=== PATIENT | female | born 2000 | race Caucasian/White ===

== ENCOUNTER 2024-05-15 17:27 | Observation (INO) ==
[2024-05-15 18:09] VITALS: TEMP 98.1
[2024-05-15 18:44] LABS: Hematocrit (blood only) 33.2 % (37.0-47.0); Hemoglobin 10.7 g/dl (12.0-16.0); Mean Corpuscular Hemoglobin 26.3 pg (25.0-34.0); Mean Corpuscular Hgb Conc 32.2 g/dL (32.0-36.0); Mean Corpuscular Volume 81.6 fL (80.0-100.0); Mean Platelet Volume 10.2 fL (9.4-12.4); Platelet Count 227 K/uL (130-400); RDW Coefficient of Variation 14.6 % (11.5-14.5); RDW Standard Deviation 42.1 fL (36.4-46.3); Red Blood Count 4.07 M/uL (4.20-5.40); White Blood Count 9.57 K/ul (4.8-10.8)
[2024-05-15 18:58] LABS: Albumin Globulin Ratio 0.9 (0.9-2); Albumin Level 3.1 gm/dl (3.4-5.0); BUN Creatinine Ratio 11.7 (10-20); Bilirubin,Total 0.4 mg/dl (0.2-1.0); Calcium 8.4 mg/dl (8.6-10.3); Creatinine Clr Calc Pharmacy 143.8 ml/min; Globulin 3.6 gm/dl (2.5-4.0); Potassium 3.8 mmol/L (3.5-5.1); Total Protein 6.7 gm/dl (6.0-8.3)
--- NOTE | 2024-05-15 19:00 | History & Physical Report ---
Date of Service May 15, 2024 Assessment & Plan (1) Gestational hypertension affecting second : History of Present Illness Chief Complaint: elevated blood pressure in office Primary Care Provider: Dilcia Arndt MD 23 F [id number] at 38 weeks seen in L&D for gestational hypertension at 38 weeks. Denies any visual changes, headache, swelling in hands, feet or face. Allergies Allergy/AdvReac Type Severity Reaction Status Date / Time No Known Drug Allergies Allergy Unknown Verified 10/23/22 08:23 Home Medications Medication Instructions Recorded Confirmed Type duloxetine 40 mg capsule,delayed 40 mg PO HS 05/15/24 05/15/24 History release ferrous sulfate 325 mg (65 mg 325 mg PO DAILY 05/15/24 05/15/24 History iron) tablet vits no.124-ferrous fum 1 tab PO DAILY 05/15/24 05/15/24 History 27 mg iron-folic acid 800 mcg tablet ( Vitamin) Patient History Medical History Normal course Gestational [-induced] hypertension without significant proteinuria, complicating childbirth No known health problems Surgical History No history of previous surgery Social History Smoking Status: Never smoker Hx Alcohol Use: No Hx Substance Use: No Preferred Language: German Communication Ability: Effective Real Estate Legal Assistant Required: No Beliefs That Will Affect Care: None marital status: Current Living Situation: Spouse Current Living Situation Comment: , 1 kid, 2 dogs Other Information That Helps Us Care for You: No Feels Safe at Home: Yes Safety Concerns: Feels Safe At This Time Assistive Devices: None OB History x1 LOCOMOTIVE OPERATOR History neg Review of Systems All systems reviewed & are unremarkable except as noted in HPI & below Physical Exam Constitutional: WD/WN, vitals as above Respiratory: normal respiratory effort, lungs clear to auscultation Cardiovascular: Rate/Rhythm: regular rate and regular rhythm Gastrointestinal (Abdomen): Inspection/Auscultation: abdomen normal to inspection abdomen soft. No epigastric or RUQ pain. Musculoskeletal: Extremities: extremities normal to inspection Neurologic: patellar DTR's 2+ bilat, sensation intact Psychiatric: A+Ox3, euthymic affect Genitourinary: OB Exam Monitor Tracing: + external FHT monitor used, + external uterine monitor used, + category I and + normal FHT variability Results & Data Vital Signs (Past 12 Hours) Vital Signs Temp Pulse BP 05/15/24 18:53 117 H 131/86 05/15/24 18:39 113 H 130/77 05/15/24 18:24 120 H 141/85 H 05/15/24 18:10 117 H 119/77 05/15/24 17:50 36.7 C 05/15/24 17:40 97 H 141/90 H Laboratory Results Laboratory Results - last 72 hr 05/15/24 18:17 WBC 9.57 RBC 4.07 L Hgb 10.7 L Hct 33.2 L MCV 81.6 MCH 26.3 MCHC 32.2 RDW Std Deviation 42.1 RDW Coeff of Randall 14.6 H Plt Count 227 MPV 10.2 Sodium 137 Potassium 3.8 Chloride 107 Carbon Dioxide 21 Anion Gap 9 BUN 7 Creatinine 0.60 Est Cr Clr Drug Dosing 143.8 eGFR 127.67 BUN/Creatinine Ratio 11.7 Glucose 87 Calcium 8.4 L Total Bilirubin 0.4 AST 20 ALT 12 Alkaline Phosphatase 201 H Total Protein 6.7 Albumin 3.1 L Globulin 3.6 Albumin/Globulin Ratio 0.9 Monitoring External Monitor Cat 1
[2024-05-15 19:01] LABS: Total Protein Urine Random 24.8 mg/dl (0-11.9)
[2024-05-15 19:07] LABS: Creatinine Urine Random 121.5 mg/dl; Protein Creatinine Ratio Urine 0.2 (0-0.2)
[2024-05-15 19:09] VITALS: BP 130/79; PULSE 113
[2024-05-15 19:16] VITALS: RESP 18
--- OUTSIDE RECORDS SUMMARY | 2024-05-16 05:22 | External Medical Summary ---
Author Name Unknown Address Unknown Organization K01:[facility] [place] - [address] [place] [address] Laboratory Report Ordering Provider Test Date Status NONA DAVE 05/10/2024 16:34:53 Final Normal: � � � <150 mg/ g creatinine
High: � � � � � 150-500 mg/g creatinine
Very High: � >500 mg/g creatinine
Nephrotic: � >3000 mg/g creatinine Observation Date Value Abnormality Reference (Units ) Status Protein/Creatinine [Ratio] in Urine 05/10/2024 16:34:53 197 Above high normal <150 (mg/g ) Final Protein, Urine 05/10/2024 16:34:53 23 (mg/dL) Final Creatinine, Urine 05/10/2024 16:34:53 117 (mg/dL) Final Performing Location [facility] [place] - [address] [place] [address]
--- OUTSIDE RECORDS SUMMARY | 2024-05-16 05:22 | External Medical Summary | Summary of Care ---
Author Name Unknown Organization [facility] Address [address] [place] [address] Phone [phone] Care Team Providers Care Sizing Machine Tender Name Role Phone Dilcia Arndt MD Primary Care Provider [phone] Reason for Visit * Reason Comments Return Visit Encounter Details Date Type Department Care Team ([facility] Contact Info) Description 04/27/2024 3:00 PM EDT Office Visit Gynecology/Obstetics [place] [address] [place] [phone] Shannan Strong PA-C [address] [place] [address] Encounter for supervision of other normal , third trimester*; History of gestational hypertension; Antepartum anemia complicating Allergies No known active allergiesdocumented as of this encounter (statuses as of 05/01/2024) Medications DULoxetine HCl 20 MG Oral Capsule Delayed Release Particles Take 2 Capsules by mouth in the morning. Active 28-0.8 MG Oral Tablet Take by mouth. Active documented as of this encounter (statuses as of 05/01/2024) Active Problems Problem Noted Date Diagnosed Date Antepartum anemia complicating 025 History of gestational hypertension 11/24/2023 Encounter for supervision of other normal , third trimester 11/24/2023 Overview (05/01/2024): Estimated Date of Delivery: 05/20/24 Continue vitamin. O positive. Rubella immune. S/p CBC - anemia taking iron. Passed 1 hour glucose test. Tdap vaccine completed. GBS culture completed. S/p ultrasound on 03/27/2024 - EFW + NOREEN normal. Cephalic. Elevated ALT measurement 11/01/2023 Iron deficiency anemia 08/25/2022 Femoral anteversion 06/14/2002 Flat foot(734) 06/14/2002 Estimated Date of Delivery Comme nts Yes 05/20/2024 Based on last me nstrual period of 08/14/2023 (Exact Date) documented as of this encounter (statuses as of 05/01/2024) Resolved Problems Problem Noted Date Diagnosed Date Resolved Date Gestational hypertension wit hout significant proteinuria 10/22/2022 12/04/2022 Antepartum anemia complicating 08/19/2022 12/04/2022 Overview (08/19/2022): Hemoglobin 10.0 on 08/17/22; blood management referral placed High-risk 03/25/2022 12/05/19 Adjustment disorder with mix ed anxiety and depressed mood 03/25/2022 12/04/2022 Overview (03/25/2022): Taking cymbalta at NOB, planning to continue on this documented as of this encounter (statuses as of 05/01/2024) Immunizations Name Administration Dates Next Due TDAP (age 10 and older)(Boostrix) 08/17/2022 TDAP, Age 7 and older, IM (Adacel) 02/25/2024 documented as of this encounter Social History Tobacco Use Types Packs/Day Years Used Date Smoking Tobacco: Never Smokeless Tobacco: Never Alcohol Use Standard Drinks/Week Comments Not Currently 0 (1 standard drink = 0.6 oz pur e alcohol) Hunger Vital Sign Answer Date Recorded Within the past 12 months, y ou worried that your food would run out before you got the money to buy more. Never true 12/21/19 24 Within the past 12 months, t he food you bought just didn't last and you didn't have money to get more. Never true 12/21/2023 Davidson Depression Scale Answer Date Recorded Davidson Depression Scale Total 6 04/05/2024 The thought of harming myself has occurred to me . Never 04/05/2024 Childcare Answer Date Recorded Do you feel overwhelmed with taking care of a child, family member or friend? No 12/21/2023 Does your family need help f inding childcare? (Household - for ages 0-17 years) Not on file 12/21/2023 Clothing Answer Date Recorded Have you been unable to get clothing when it was really needed? No 12/21/2023 Is your family able to get c lothes or diapers when needed? (Household - for ages 0-17 years) Not on file 12/21/2023 Personal Safety Answer Date Recorded Do you feel unsafe or have concerns for your saf ety? No 12/21/2023 Do you have concerns for you r family's safety? (Household - for ages 0-17 years) Not on file 12/21/2023 Utilities Answer Date Recorded Do you have trouble paying y our heating, water, or electric bill? No 12/21/2023 Is your family able to pay t he heat, water, or electric bill? (Household - for ages 0-17 years) Not on file 12/21/2023 Does your family have access to good internet? (Household - for ages 0-17 years) Not on file 12/21/2023 Employment Status Answer Date Recorded Are you unemployed or without regular income? No 12/21/2023 Does the household have a re gular source of income? (Household - for ages 0-17 years) Not on file 12/21/2023 Social Connections Answer Date Recorded How often do you feel lonely or isolated from th ose around you? Rarely 12/21/2023 Financial Resource Strain Answer Date R ecorded Do you have any trouble payi ng for your medications, or do you think you might in the future? No 12/21/2023 Does your family have troubl e paying for medicine? (Household - for ages 0-17 years) Not on file 12/21/2023 Transportation Needs Answer Date Record ed Do you have trouble getting a ride to medical visits or work? (Adult - for ages 18 years and over) Not on file 12/21/2023 Does your family have a hard time getting a ride to doctors visits? (Household - for ages 0-17 years) Not on file 12/21/2023 Has lack of transportation k ept you from medical appointments, meetings, work, or from getting things needed for daily living? Check all that apply. No 12/21/2023 Do you (or your family) have trouble finding or paying for a ride (transportation)? (Household - for ages 0-17 years) Not on file 12/21/2023 Housing Stability Answer Date Recorded Do you currently live in a s helter or have no steady place to sleep at night? No 12/21/2023 Do you think you are at risk of becoming homeless? (Adult - for ages 18 years and over) Not on file 12/21/2023 Does your family worry about paying for your home or becoming homeless? (Household - for ages 0-17 years) Not on file 1 02/19/2023 Are you homeless or worried that you might be in the future? No 12/21/2023 Are you (or your family) omkar eless or worried that you might be in the future? (Household - for ages 0-17 years) Not on file Food Insecurity Answer Date Recorded Do you need food for this week? No 12/21/2023 Are you able to get enough f ood for your family? (Household - for ages 0-17 years) Not on file 12/21/2023 Does your family need food t his week? (Household - for ages 0-17 years) Not on file 12/21/2023 Do you always have enough fo od for your family? (Household - for ages 0-17 years) Not on file 12/21/2023 Food Insecurity Answer Date Recorded Within the past 12 months, y ou worried that your food would run out before you got the money to buy more. Never true 12/21/19 24 Within the past 12 months, t he food you bought just didn't last and you didn't have money to get more. Never true 12/21/2023 Do you need food for this week? 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 BP 116/68 | Wt 77.9 kg (171 lb 11.2 oz) | LMP 08/14/2023 (Exact Date) | BMI 31.40 kg/m² | BSA 1.85m² Doing well. Denies vaginal bleeding, leaking of fluid, vaginal pressure, abdominal pain, or abnormal vaginal discharge. Denies headaches, blurry vision, or right upper quadrant pain. Patient states she feels good movement. Patient reports that a few terrence dalton contractions. Patient reports mental health is good. Physical Exam General: alert and oriented, no acute distress Pulmonary: normal respiratory effort, no accessory muscle use. Abdomen: gravid, soft, non-tender heart rate: 140's bpm Fundal height: 37 cm Pelvic Exam: external genitalia and vagina anatomy within normal limit, GBS culture obtained today. Life Insurance Agent Documentation Patient offered radio electrician and declined. [place] OB Problems (from 10/25/23 to present) Problem Noted Diagnosed Resolved History of gestational hypertension 11/24/2023 by Radha Padgett CRNP No Encounter for supervision of other normal , third trimester 11/24/2023 by Radha Padgett CRNP No Estimated Date of Delivery: 4/12/25 Continue vitamin. O positive. Rubella immune. S/p CBC - anemia taking iron. Passed 1 hour glucose test. Tdap vaccine completed. GBS culture completed. S/p ultrasound on 03/27/2024 - EFW + NOREEN normal. Cephalic. Plan: -GBS culture obtained today. -Repeat CBC ordered to follow up on anemia. Patient reports taking iron. -Patient reports that mental health is good. Counseled patient to call triage/go to labor and delivery if she has any vaginal bleeding, leaking of fluid, vaginal pressure, 6 or more painful contractions in an hour, abdominal pain, decreased movements, headaches, blurry vision, or right upper quadrant pain. Patient verbalized understanding. RTO in 1 week for return appointment or sooner if any concerns. Shannan Pereira PA-C documented in this encounter Nursing Notes * Sarah Brink CMA - 04/27/2024 2:58 PM EDT Routine OB check. Denies questions or complaints. documented in this encounter Plan of Treatment Upcoming Encounters Date Type Department Care Team (Late st Contact Info) Description 05/03/2024 8:30 AM EDT Office Visit Gynecology/Obstetrics [facility] [address] [place] [phone] Domenica Neely CRNP [address] [place] [address] 05/11/2024 3:45 PM EDT [facility] [address] [address] Mar yJo Carlson PA-C [address] [place] [address] Health Maintenance Due Date Last Done Comments Depression Screening 2010 Lipid Panel 2018 COVID-19 Vaccine ( season) 2023 Influenza Vaccine (FLU shot) (#1) 2023 02/28/2016, 11/16/2013 Pap Smear 03/25/2025 03/25/2022 DTap/Tdap Vaccines (9 - Td or Tdap) 02/24/2034 02/25/2024, 08/17/2022, 09/19/2009, Additional history exists Hepatitis B Vaccine Completed 07/17/1999, 1998, 1998 HPV (Gardasil) Vaccine Completed , 12/09/2012, 09/23/2012 MENINGOCOCCAL (MENACTRA/MENVEO) Completed 11/24/2014, 09/19/2009 Meningitis B Vaccine (Bexsero/Trumemba) Completed 08/14/2020, 02/20/2016 Gonorrhea / Chlamydia Screen Discontinued 10/29/2023, 03/25/2022 Pneumococcal Vaccine: Pediatrics (0 to 5 Years) and At-Risk Patients (6 to 18 Years and 19+ Years) Aged Out No longer eligib le based on patient's age to complete this topic documented as of this encounter Medical Devices Not on filedocumented as of this encounter Procedures Procedure Name Priority Date/Time Associated Diagnosis Comments GROUP B STREP CULTURE/PCR Routine 04/27/2024 3:17 PM EDT Encounter for supervision of other normal , third trimester documented in this encounter Results * GROUP B STREP CULTURE/PCR (04/27/2024 3:17 PM EDT) Group B Strep PCR Result Negative Negative 04/28/2024 9:46 PM EDT [facility] Comment:No Group B Streptoco ccus detected by culture-enhanced PCR (amplified probe). GBS GBSCt 0.0 04/28/2024 9:46 PM EDT [facility] GBS SPCCt 31.0 04/28/2024 9:46 PM EDT LABORATORY [facility] Swab Rectum and vagina, CS / Unknown 04/27/2024 3:17 PM EDT 04/27/2024 3:17 PM EDT us Shannan Mayers PA-C LAB MICRO - GENER AL ORDERABLES Final Result [facility] [address] [place] [address] documented in this encounter Visit Diagnoses Diagnosis Encounter for supervision of other normal , third trimester- Primary History of gestational hypertension Antepartum anemia complicating Anemia, antepartum documented in this encounter Care Teams Sizing Machine Tender Relationship Specialty Start Date End Date Dilcia Arndt MD PCP - General 04/26/08 documented as of this encounter"
--- OUTSIDE RECORDS SUMMARY | 2024-05-16 05:22 | External Medical Summary | Summary of Care ---
Author Name Unknown Organization [facility] Address [address] [place] [address] Phone [phone] Care Team Providers Care Rag Willow Operator Name Role Phone Dilcia Arndt MD Primary Care Provider [phone] Reason for Visit * Reason Comments Outpatient Testing Encounter Details Date Type Department Care Team ([facility] st Contact Info) Description 05/10/2024 4:40 PM EDT Laboratory Laboratory Patient Service [address] [phone] [address] [address] Allergies No known active allergiesdocumented as of this encounter (statuses as of 05/11/2024) Medications DULoxetine HCl 20 MG Oral Capsule Delayed Release Particles Take 2 Capsules by mouth in the morning. Active 28-0.8 MG Oral Tablet Take by mouth. Active documented as of this encounter (statuses as of 05/11/2024) Active Problems Problem Noted Date Diagnosed Date Antepartum anemia complicating 025 History of gestational hypertension 11/24/2023 Encounter for supervision of other normal , third trimester 11/24/2023 Overview (05/10/2024): Estimated Date of Delivery: 05/20/24 Continue vitamin. O positive. Rubella immune. S/p CBC - anemia taking iron. Passed 1 hour glucose test. Tdap vaccine completed. GBS culture negative. S/p ultrasound on 03/27/2024 - EFW + NOREEN normal. Cephalic. Elevated ALT measurement 11/01/2023 Iron deficiency anemia 08/25/2022 Femoral anteversion 06/14/2002 Flat foot(734) 06/14/2002 Overview (05/10/2024): ICD-10 Update of Inactive Term Estimated Date of Delivery Comme nts Yes 05/20/2024 Based on last me nstrual period of 08/14/2023 (Exact Date) documented as of this encounter (statuses as of 05/11/2024) Resolved Problems Problem Noted Date Diagnosed Date [...] as of this encounter (statuses as of 05/11/2024) Immunizations Name Administration Dates Next Due TDAP [...] money to get more. 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 Not on file Not on file documented as of this encounter Plan of Treatment Upcoming Encounters Date Type Department Care Team (Late st Contact Info) Description 05/15/2024 3:45 PM EDT Nurse Only Gynecology[facility]stetics [place] [address] [facility] [phone] [place], Nurse Bottom Buffer [employer] [address] [place] [address] 05/17/2024 3:45 PM EDT Office Visit Gynecology/Obstetics [place] [address] [place], [place] [address] [phone] Shannan Strong PA-C [address] [place] [address] [facility] Robert, STELLA [address] [place], [place] [phone] Health Maintenance Due Date Last Done Comments Depression Screening 2010 Lipid Panel 2018 COVID-19 Vaccine ( season) 2023 Influenza Vaccine (FLU shot) (Season Ended) 2024 02/28/2016, 11/16/2013 Pap Smear 03/25/2025 03/25/2022 DTap/Tdap Vaccines (9 - Td or Tdap) 02/24/2034 02/25/2024, 08/17/2022, 09/19/2009, Additional history exists Hepatitis B Vaccine Completed 07/17/1999, 1998, 1998 HPV (Gardasil) Vaccine Completed 4, 12/09/2012, 09/23/2012 MENINGOCOCCAL (MENACTRA/MENVEO) Completed 11/24/2014, 09/19/2009 [...] Not on filedocumented as of this encounter Care Teams Rag Willow Operator Relationship Specialty Start Date End Date Dilcia Arndt MD PCP - General 04/26/08 documented as of this encounter
--- OUTSIDE RECORDS SUMMARY | 2024-05-16 05:22 | External Medical Summary | Summary of Care ---
Author Name Unknown Organization [facility] Address [address] [place] [address] Phone [phone] Care Team Providers Care Superintendent Quarry Name Role Phone Dilcia Arndt MD Primary Care Provider [phone] Reason for Visit * Reason Comments Return Visit Encounter Details Date Type Department Care Team (Late st Contact Info) Description 05/03/2024 8:30 AM EDT Office Visit Gynecology/Obstetric s [facility] [address] [place] [address] Domenica Neely CRNP [address] [place] [address] History of gestational hypertension*; Encounter for supervision of other normal , third trimester; Antepartum anemia complicating Allergies No known active allergiesdocumented as of this encounter (statuses as of 05/03/2024) Medications DULoxetine HCl 20 MG Oral Capsule Delayed Release Particles Take 2 Capsules by mouth in the morning. Active 28-0.8 MG Oral Tablet Take by mouth. Active documented as of this encounter (statuses as of 05/03/2024) Active Problems Problem Noted Date Diagnosed Date [...] as of this encounter (statuses as of 05/03/2024) Resolved Problems Problem Noted Date Diagnosed Date [...] as of this encounter (statuses as of 05/03/2024) Immunizations Name Administration Dates Next Due TDAP [...] money to get more. 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 Good movement. No regular ctx or LOF/bleeding. Advised to call right away if she thinks her water broke, with decreased FM, or signs of labor. Post dates IOL scheduled. 1 week return RICHARD Martinez * Zari Coronel LPN - 05/03/2024 8:20 AM EDT 37w4d Denies vaginal bleeding/rom + movement No new concerns documented in this encounter Plan of Treatment Upcoming Encounters Date Type Department Care Team (Late st Contact Info) Description 05/11/2024 3:45 PM EDT Office Visit Gynecology/Obstetrics [facility] [address] [place] [phone] Mary Jo Carlson PA-C [address] [place] [address] Health Maintenance Due Date Last Done Comments [...] Not on filedocumented as of this encounter Visit Diagnoses Diagnosis History of gestational hypertension- Primary Encounter for supervision of other normal , third trimester Antepartum anemia complicating Anemia, antepartum documented in this encounter Care Teams Superintendent Quarry Relationship Specialty Start Date End Date Dilcia Arndt MD PCP - General 04/26/08 documented as of this encounter
--- OUTSIDE RECORDS SUMMARY | 2024-05-16 05:22 | External Medical Summary | Summary of Care ---
Author Name Unknown Organization [facility] Address [address] [place] [address] Phone [phone] Care Team Providers Care Assistant Refinery Operator Name Role Phone Dilcia Arndt MD Primary Care Provider [phone] Reason for Visit * Reason Comments Return Visit Encounter Details Date Type Department Care Team ([facility] st Contact Info) Description 05/10/2024 4:00 PM EDT Office Visit Gynecology/Obstetics [place] [address] [place] [phone] Shannan Strong PA-C [address] [place] [address] Encounter for supervision of other normal , third trimester*; History of gestational hypertension; Antepartum anemia complicating ; Elevated blood pressure affecting in third trimester, antepartum Allergies No known active allergiesdocumented as of this encounter (statuses as of 05/12/2024) Medications DULoxetine HCl 20 MG Oral Capsule Delayed Release Particles Take 2 Capsules by mouth in the morning. Active 28-0.8 MG Oral Tablet Take by mouth. Active documented as of this encounter (statuses as of 05/12/2024) Active Problems Problem Noted Date Diagnosed Date [...] as of this encounter (statuses as of 05/12/2024) Resolved Problems Problem Noted Date Diagnosed Date [...] as of this encounter (statuses as of 05/12/2024) Immunizations Name Administration Dates Next Due TDAP [...] money to get more. 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 BP 132/76 | Wt 80.5 kg (177 lb 6.4 oz) | LMP 08/14/2023 (Exact Date) | BMI 32.45 kg/m² | BSA 1.88 m² Doing well. Denies vaginal bleeding, leaking of fluid, abdominal pain, or abnormal vaginal discharge. Denies headaches, blurry vision, or right upper quadrant pain. Patient states she feels good movement. Patient denies edema. Patient reports blood pressure in 130/80's at home. Patient reports has some left mid back pain and lower back pain and radiated to the pelvis - happened every 30 minutes and fell asleep and they the contractions improved. Patient reports that she hasrandom back pain/contractions, but nothing consistent. Patient has vaginal pressure and pelvic floor pressure. Patient desires cervical check. Physical Exam General: alert and oriented, no acute distress Pulmonary: normal respiratory effort, no accessory muscle use. Abdomen: gravid, soft, non-tender heart rate: 140's bpm Fundal height: 39 cm Pelvic Exam: external genitalia and vagina anatomy within normal limits Cervix: 2cm/70%/-3/soft Spreader Operator Documentation Patient offered surveillance sensor officer and declined. [place] [facility] Problems (from 10/25/23 to present) Problem Noted Diagnosed Resolved Antepartum anemia complicating 05/01/2024 by Shannan Strong PA-C No History of gestational hypertension 11/24/2023 by Radha Padgett CRNP No Encounter for supervision of other normal , third trimester 11/24/2023 by Radha Padgett CRNP No Estimated Date of Delivery: 05/20/24 Continue vitamin. O positive. Rubella immune. S/p CBC - anemia taking iron. Passed 1 hour glucose test. Tdap vaccine completed. GBS culture negative. S/p ultrasound on 03/27/2024 - EFW + NOREEN normal. Cephalic. Plan: -GBS culture negative. -IOL scheduled for 05/24/2024. -Blood pressure is increasing, but still normal. Advised blood pressure check prior to next appointment to check in due to prior history. Patient agrees and will schedule this at checkout. Pre-eclampsia lab work ordered. Patient counseled on pre-eclampsia symptoms to monitor for. -Cephalic. Counseled patient to call triage/go to labor [...] Nursing Notes * Sarah Brink CMA - 05/10/2024 4:01 PM EDT Routine OB check. Denies questions or complaints. documented in this encounter Plan of Treatment Upcoming Encounters Date Type Department Care Team (Late st Contact Info) Description 05/15/2024 3:45 PM EDT Nurse Only [facility] [place] [facility] [phone] [place], Nurse Software Sales Representative [place] [address] [facility] [phone] 05/17/2024 3:45 PM EDT Office Visit Gynecology/Obstetics [place] [address] [facility] [place] [phone] Shannan Strong PA-C [address] [facility] [phone] Nurse Sena [employer] Robert, STELLA [address] [facility] [place] [phone] Health Maintenance Due Date Last Done Comments [...] Procedure Name Priority Date/Time Associated Diagnosis Comments COMPREHENSIVE METABOLIC PANEL Routine 05/10/2024 4:38 PM EDT Elevated blood pressure affecting in third trimester, antepartum CBC Routine 05/10/2024 4:38 PM EDT Elevated blood pressure affecting in third trimester, antepartum PROTEIN/ CREATININE RATIO, URINE Routine 05/10/2024 4:34 PM EDT Elevated blood pressure affecting in third trimester, antepartum documented in this encounter Results * (ABNORMAL) COMPREHENSIVE METABOLIC PANEL (05/10/2024 4:38 PM EDT) BUN 9 6 - 20 mg/dL 05/10/2024 11:13 PM EDT [facility] CREATININE 0.6 0.5 - 1.0 mg/dL 05/10/2024 11:13 PM EDT [facility] EGFR >90 >=60 mL/min 05/10/2024 11:13 PM EDT [facility] Comment:eGFR is calculated b ased on the CKD-EPI 2020 equation. SODIUM 138 135 - 146 mmol/L 05/10/2024 11:13 PM EDT [facility] POTASSIUM 4.1 3.5 - 5.1 mmol/L 05/10/2024 11:13 PM EDT [facility] CHLORIDE 105 98 - 107 mmol/L 05/10/2024 11:13 PM EDT [facility] CO2 20(L) 22 - 32 mmol/L 05/10/2024 11:13 PM EDT [facility] ANION GAP 13 7 - 15 mmol/L 05/10/2024 11:13 PM EDT [facility] GLUCOSE 84 70 - 120 mg/dL 05/10/2024 11:13 PM EDT [facility] Albumin 3.3(L) 3.8 - 5.0 g/dL 05/10/2024 11:13 PM EDT [facility] AST 27 10 - 35 U/L 05/10/2024 11:13 PM EDT [facility] Alkaline Phosphatase 222(H) 35 - 130 U/L 05/10/2024 11:13 PM EDT [facility] Bilirubin, Total <0.2 <=1.2 mg/dL 05/10/2024 11:13 PM EDT [facility] CALCIUM 8.6 8.4 - 10.2 mg/dL 05/10/2024 11:13 PM EDT [facility] Protein 6.4 6.0 - 8.3 g/dL 05/10/2024 11:13 PM EDT [facility] ALT 17 10 - 35 U/L 05/10/2024 11:13 PM EDT [facility] Blood Venous blood specimen / Unknown Venipuncture / Unknown 05/10/2024 4:38 PM EDT 05/10/2024 4:38 PM EDT Shannan Mayers PA-C LAB BLOOD ORDERAB LES Final Result Performing Organization Address City/State/[facility] Co de Phone Number [facility] [address] [place] [address] * (ABNORMAL) CBC (05/10/2024 4:38 PM EDT) WBC 8.02 4.00 - 10.80 K/uL 05/10/2024 11:54 PM EDT [facility] RBC 4.33 3.85 - 5.15 M/uL 05/10/2024 11:54 PM EDT [facility] HGB 11.4(L) 12.0 - 15.3 g/dL 05/10/2024 11:54 PM EDT [facility] HCT 36.7 36.0 - 45.2 % 05/10/2024 11:54 PM EDT [facility] MCV 84.8 81.5 - 97.5 fL 05/10/2024 11:54 PM EDT [facility] MCH 26.3 27.0 - 34.0 pg 05/10/2024 11:54 PM EDT [facility] MCHC 31.1 32.0 - 36.0 g/dL 05/10/2024 11:54 PM EDT [facility] RDW 13.7 11.5 - 15.5 % 05/10/2024 11:54 PM EDT [facility] PLT 237 140 - 400 K/uL 05/10/2024 11:54 PM EDT [facility] MPV 10.6 6.6 - 11.1 fL 05/10/2024 11:54 PM EDT [facility] nRBCs 0 <=0 /100 WBCs 05/10/2024 11:54 PM EDT [facility] Blood Venous blood specimen / Unknown Venipuncture / Unknown 05/10/2024 4:38 PM EDT 05/10/2024 4:38 PM EDT us Shannan Mayers PA-C LAB BLOOD ORDERAB LES Final Result Performing Organization Address City/[facility] Co de Phone Number [facility] [address] [place] [address] * (ABNORMAL) PROTEIN/ CREATININE RATIO, URINE (05/10/2024 4:34 PM EDT) Pathologist [facility] Protein/ Creatinine Ratio, Urine 197(H) <150 mg/g 05/10/2024 11:21 PM EDT [facility] Protein, Random Urine 23 mg/dL 05/10/2024 11:21 PM EDT [facility] Creatinine, Random Urine 117 mg/dL 05/10/2024 11:21 PM EDT [facility] Urine Non-blood Collection / Unknown 05/10/2024 4:34 PM EDT 05/10/2024 4:35 PM EDT Narrative LAB[facility]ORY [facility] - 05/10/2024 11:21 PM EDT Normal: <150 mg/g creatinine High: 150-500 mg/g creatinine Very High: >500 mg/g creatinine Nephrotic: >3000 mg/g creatinine us Shannan Mayers PA-C LAB URINE ORDERAB LES Final Result Performing Organization Address [facility] Co de Phone Number [facility] [address] [place], [place] [phone] documented in this encounter Visit Diagnoses Diagnosis Encounter for supervision of other normal , third trimester- Primary History of gestational hypertension Antepartum anemia complicating Anemia, antepartum Elevated blood pressure affecting in third trimester, antepartum documented in this encounter Care Teams Assistant Refinery Operator Relationship Specialty Start Date End Date Dilcia Arndt MD PCP - General 04/26/08 documented as of this encounter"
--- OUTSIDE RECORDS SUMMARY | 2024-05-16 05:22 | External Medical Summary ---
Author Name Unknown Address Unknown Organization [id number]:[facility]ATORY [place] - [facility] [address] [facility] [address] Laboratory Report Ordering Provider Test Date Status NONA DAVE 05/10/2024 16:38:49 Final Observation Date Value Abnormality Reference (Units ) Status WBC, Total 05/10/2024 16:38:49 8.02 4.00-10.80 (K/uL) Final RBC 05/10/2024 16:38:49 4.33 3.85-5.15 (M/uL) Final Hemoglobin 05/10/2024 16:38:49 11.4 Below low normal 12.0-15.3 (g/dL) Final HCT 05/10/2024 16:38:49 36.7 36.0-45.2 (%) Final MCV 05/10/2024 16:38:49 84.8 81.5-97.5 (fL) Final MCH 05/10/2024 16:38:49 26.3 27.0-34.0 (pg) Final MCHC 05/10/2024 16:38:49 31.1 32.0-36.0 (g/dL) Final RDW 05/10/2024 16:38:49 13.7 11.5-15.5 (%) Final Platelets 05/10/2024 16:38:49 237 140-400 (K/uL) Final MPV 05/10/2024 16:38:49 10.6 6.6-11.1 (fL) Final Nucleated erythrocytes/100 leukocytes [Ratio] in Blood by Automated count 05/10/2024 16:38:49 0 <=0 (/100 WBCs) Final Performing Location [facility]ATORY [place] - [address] [place] [address]
--- OUTSIDE RECORDS SUMMARY | 2024-05-16 05:22 | External Medical Summary ---
Author Name Unknown Address Unknown Organization [id number]:LABORATORY [facility] [place] - [address] [place] [address] Laboratory Report Ordering Provider Test Date Status NONA DAVE 05/10/2024 16:38:49 Final Observation Date Value Abnormality Reference (Units ) Status BUN 05/10/2024 16:38:49 9 6-20 (mg/dL) Final Creatinine 05/10/2024 16:38:49 0.6 0.5-1.0 (mg/dL) Final Glomerular filtration rate/1.73 sq M.predicted [Volume Rate/Area] in Serum, Plasma or Blood by Creatinine-based formula (CKD-EPI) 05/10/2024 16:38:49 >90 >=60 (mL/min) Final eGFR is calculated based on the CKD-EPI 2020 equation. Sodium 05/10/2024 16:38:49 138 135-146 (m mol/L) Final Potassium 05/10/2024 16:38:49 4.1 3.5-5.1 (m mol/L) Final Cl 05/10/2024 16:38:49 105 98-107 (mm ol/L) Final CO2 05/10/2024 16:38:49 20 Below low normal 22- 32 (mmol/L) Final Anion gap 05/10/2024 16:38:49 13 7-15 (mmol /L) Final Glucose 05/10/2024 16:38:49 84 70-120 (mg /dL) Final Albumin 05/10/2024 16:38:49 3.3 Below low normal 3.8 -5.0 (g/dL) Final AST (Aspartate aminotransferase) 05/10/2024 16:38:49 27 10-35 (U/L) Fin al Alk Phos 05/10/2024 16:38:49 222 Above high normal 35 -130 (U/L) Final Bilirubin, Total 05/10/2024 16:38:49 <0.2 <=1 .2 (mg/dL) Final Calcium 05/10/2024 16:38:49 8.6 8.4-10.2 ( mg/dL) Final Protein 05/10/2024 16:38:49 6.4 6.0-8.3 (g /dL) Final ALT (Alanine aminotransferase) 05/10/2024 16:38:49 17 10-35 (U/L) Joel jeff Performing Location LABORATORY [facility] [place] - [facility] [address] [facility] [place] [address]
--- OUTSIDE RECORDS SUMMARY | 2024-05-16 05:22 | External Medical Summary | Summary of Care ---
Author Name Unknown Organization [facility] Address [address] [place] [address] Phone [phone] Care Team Providers Care C2 Tactical Analysis Technician Name Role Phone Dilcia Arndt MD Primary Care Provider [phone] Reason for Visit * Reason Comments Outpatient Testing Encounter Details Date Type Department Care Team ([facility] st Contact Info) Description 05/10/2024 4:40 PM EDT Laboratory Laboratory Patient Service [address] [phone] [address] [address] Allergies No known active allergiesdocumented as of [...] money to get more. 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 Not on file documented as of this encounter Plan of Treatment Upcoming Encounters Date Type Department Care Team (Late st Contact Info) Description 05/15/2024 3:45 PM EDT Nurse Only Gynecology/Obstetics [place] [facility] [phone] [place], Nurse Food And Beverage Operations Manager Lock [address] [place] [address] 05/17/2024 3:45 PM EDT Office Visit Gynecology/Obstetics [place] [address] [place], [place] [address] [phone] Shannan Strong PA-C [address] [place] [address] Sena, [employer] Robert, STELLA [address] [place], [place] [phone] Health Maintenance Due Date Last Done Comments [...] filedocumented as of this encounter Care Teams C2 Tactical Analysis Technician Relationship Specialty Start Date End Date Dilcia Arndt MD PCP - General 04/26/08 documented as of this encounter
--- OUTSIDE RECORDS SUMMARY | 2024-05-16 05:23 | External Medical Summary ---
Author Name Unknown Address Unknown Organization K01:[facility]ORY [facility] - [address] [place] [address] Laboratory Report Ordering Provider Test Date Status JOLIENONA SEWELL 04/27/2024 15:18:03 Final Observation Date Value Abnormality Reference (Units ) Status Iron 04/27/2024 15:18:03 30 Below low normal 33-151 (ug/dL) Final Iron-binding capacity 04/27/2024 15:18:03 682 Above high normal 250-425 (ug/dL) Final Transferrin Sat % 04/27/2024 15:18:03 4 Below low normal 15-55 (%) Final Performing Location LAB[facility]ORY [facility] - [address] [place] [address]
--- OUTSIDE RECORDS SUMMARY | 2024-05-16 05:23 | External Medical Summary ---
Author Name Unknown Address Unknown Organization [id number]:[facility]ORY [facility] [place] - [facility] [place] [address] Laboratory Report Ordering Provider Test Date Status NONA DAVE 04/27/2024 15:18:03 Final Observation Date Value Abnormality Reference (Units ) Status Retic, % (auto) 04/27/2024 15:18:03 1.61 0.80-1.90 (%) Final Reticulocytes, Absolute 04/27/2024 15:18:03 71.2 31.3-100.1 (K/uL) Final Reticulocyte fraction, immature 04/27/2024 15:18:03 30.1 Above high normal 2.5-20.6 (%) Final Reticulocyte HGB 04/27/2024 15:18:03 25.2 Below low normal 29.7-37.4 (pg) Final Performing Location LAB[facility]ORY [facility] [place] - [facility] [place] [address]
--- OUTSIDE RECORDS SUMMARY | 2024-05-16 05:23 | External Medical Summary ---
Author Name Unknown Address Unknown Organization [id number]:[facility] [place] [address] [place] [address] Laboratory Report Ordering Provider Test Date Status SÁNCHEZ RODRÍGUEZ 02/25/2024 15:16:47 Final Observation Date Value Abnormality Reference (Units ) Status Iron 02/25/2024 15:16:47 32 Below low normal 33-151 (ug/dL) Final Iron-binding capacity 02/25/2024 15:16:47 568 Above high normal 250-425 (ug/dL) Final Transferrin Sat % 02/25/2024 15:16:47 6 Below low normal 15-55 (%) Final Performing Location [facility] [place] [address] [place] [address]
--- OUTSIDE RECORDS SUMMARY | 2024-05-16 05:23 | External Medical Summary ---
Author Name Unknown Address Unknown Organization K01:[facility] - [address] [place] [address] Laboratory Report Ordering Provider Test Date Status NONA DAVE 04/27/2024 15:18:03 Final Observation Date Value Abnormality Reference (Units ) Status Ferritin 04/27/2024 15:18:03 9 Below low normal 13- 150 (ng/mL) Final Performing Location [facility] - [address] [place] [address]
--- OUTSIDE RECORDS SUMMARY | 2024-05-16 05:23 | External Medical Summary ---
Author Name Unknown Address Unknown Organization [id number]:[facility]ORY [facility] [place] - [address] [place] [address] Laboratory Report Ordering Provider Test Date Status SÁNCHEZ RODRÍGUEZ 02/25/2024 15:16:47 Final Observation Date Value Abnormality Reference (Units ) Status Creatinine 02/25/2024 15:16:47 0.6 0.5-1.0 (mg/dL) Final Glomerular filtration rate/1.73 sq M.predicted [Volume Rate/Area] in Serum, Plasma or Blood by Creatinine-based formula (CKD-EPI) 02/25/2024 15:16:47 >90 >=60 (mL/min) Final eGFR is calculated based on the CKD-EPI 2020 equation. Performing Location [facility] [place] - [address] [place] [address]
--- OUTSIDE RECORDS SUMMARY | 2024-05-16 05:23 | External Medical Summary | Summary of Care ---
Author Name Unknown Organization [facility] Address [address] [place] [place] [address] Phone [phone] Care Team Providers Care Nursing Home Social Worker Name Role Phone Dilcia Arndt MD Primary Care Provider [phone] Reason for Visit * Reason Comments Return Visit Encounter Details Date Type Department Care Team (Late st Contact Info) Description 02/25/2024 2:30 PM EST Office Visit Gynecology/Obstetric s [facility] [address] [place] [address] Radha Padgett CRNP [address] [place] [address] History of gestational hypertension*; Encounter for supervision of other normal , unspecified trimester; Need for tjrvxtwwbj-eabwtrs-ck rtussis (Tdap) vaccine Allergies No known active allergiesdocumented as of this encounter (statuses as of 02/25/2024) Medications DULoxetine HCl 20 MG Oral Capsule Delayed Release Particles Take 2 Capsules by mouth in the morning. Active 28-0.8 MG Oral Tablet Take by mouth. Active documented as of this encounter (statuses as of 02/25/2024) Active Problems Problem Noted Date Diagnosed Date History of gestational hypertension 11/24/2023 Encounter for supervision of other normal , unspecified trimester 11/24/2023 Elevated ALT measurement 11/01/2023 Iron deficiency anemia 08/25/2022 Femoral anteversion 06/14/2002 Flat foot(734) 06/14/2002 Estimated Date of Delivery Comme nts Yes 05/20/2024 Based on last me nstrual period of 08/14/2023 (Exact Date) documented as of this encounter (statuses as of 02/25/2024) Resolved Problems Problem Noted Date Diagnosed Date [...] as of this encounter (statuses as of 02/25/2024) Immunizations Name Administration Dates Next Due TDAP [...] money to get more. Never true 12/21/2023 [place] Depression Scale Answer Date Recorded [place] Depression Scale Total 5 10/29/2023 The thought of harming myself has occurred to me . Never 10/29/2023 Childcare Answer Date Recorded Do you feel [...] No 12/21/2023 Does the household have a [facility] source of income? 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 Feeling fine overall. Baby is active. No contractions, bleeding, LOF. Glucola, TDAP today. RICHARD Cheung * Zari Coronel LPN - 02/25/2024 2:36 PM EST 27w6d Denies vaginal bleeding/rom + movement Tdap today documented in this encounter Plan of Treatment Upcoming Encounters Date Type Department Care Team (Late st Contact Info) Description 03/13/2024 4:30 PM EST Office Visit Gynecology/Obstetrics [facility] [address] [place] [address] Mary Jane Haro PA-C [address] [place] [address] Health Maintenance Due Date Last Done Comments Depression Screening 2010 COVID-19 Vaccine (2023- season) 2023 Influenza Vaccine (FLU shot) (#1) 2023 02/28/2016, 11/16/2013 Pap Smear 03/25/2025 03/25/2022 DTap/Tdap Vaccines (9 - Td or Tdap) 02/24/2034 02/25/2024, 08/17/2022, 09/19/2009, Additional history exists Hepatitis B Vaccine Completed 07/17/1999, 1998, 1998 HPV (Gardasil) Vaccine Completed 4, 12/09/2012, 09/23/2012 MENINGOCOCCAL (MENACTRA/MENVEO) Completed 11/24/2014, 09/19/2009 Gonorrhea / Chlamydia Screen Discontinued 10/29/2023, 03/25/2022 [...] Encounter for supervision of other normal , unspecified trimester Need for midoyppiyw-yvwswnr-lodmakyai (Tdap) vaccine Need for prophylactic vaccination with combined ajnhqoatbz-pijfdks-ofxwenqub (DTP) vaccine documented in this encounter Care Teams Nursing Home Social Worker Relationship Specialty Start Date End Date Dilcia Arndt MD PCP - General 04/26/08 documented as of this encounter
--- OUTSIDE RECORDS SUMMARY | 2024-05-16 05:23 | External Medical Summary ---
Author Name Unknown Address Unknown Organization K01:LABORATORY [facility] [place] - [address] [place] [address] Laboratory Report Ordering Provider Test Date Status SÁNCHEZ RODRÍGUEZ 02/25/2024 15:16:47 Final Observation Date Value Abnormality Reference (Units ) Status Vitamin B12 02/25/2024 15:16:47 595 171-6495 (pg/mL) Final Performing Location [facility]ORY [facility] [place] - [address] [place] [address]
--- OUTSIDE RECORDS SUMMARY | 2024-05-16 05:23 | External Medical Summary ---
Author Name Unknown Address Unknown Organization K[facility] [address] [place] [address] Laboratory Report Ordering Provider Test Date Status SÁNCHEZ RODRÍGUEZ 02/25/2024 15:16:47 Final Observation Date Value Abnormality Reference (Units ) Status Glucose [Moles/volume] in Serum or Plasma --1 hour post 50 g glucose PO 02/25/2024 15:16:47 66 Below low normal 70-129 (mg/dL) Final Performing Location [facility] - [address] [place] [address]
--- OUTSIDE RECORDS SUMMARY | 2024-05-16 05:23 | External Medical Summary ---
Author Name Unknown Address Unknown Organization K01:LABORATORY [address] [place] [address] Laboratory Report Ordering Provider Test Date Status PJ RODRÍGUEZMASON 02/25/2024 15:16:47 Final Observation Date Value Abnormality Reference (Units ) Status SYNC LEUKOCYTES IN BLOOD BY AUTOMATED COUNT 02/25/2024 15:16:47 9.60 4.00-10.80 (K/uL) Final Segs 02/25/2024 15:16:47 68.9 40.0-75.0 (%) Final Lymphs % 02/25/2024 15:16:47 21.4 18.0-42.0 (%) Final Monos 02/25/2024 15:16:47 8.6 1.0-11.0 (%) Final Eosinophils 02/25/2024 15:16:47 0.4 0.0-6.0 (%) Final Basos 02/25/2024 15:16:47 0.2 0.0-2.0 (%) Final Immature Granulocyte, Percent 02/25/2024 15:16:47 0.5 0.0-2.0 (%) Final Absolute Segs 02/25/2024 15:16:47 6.61 1.80-7.70 (K/uL) Final Lymphs, absolute 02/25/2024 15:16:47 2.05 1.00-4.80 (K/ul) Final Monos, Abs 02/25/2024 15:16:47 0.83 0.00-1.10 (K/uL) Final Eos, Abs 02/25/2024 15:16:47 0.04 0.00-0.70 (K/uL) Final Basos, Abs 02/25/2024 15:16:47 0.02 0.00-0.20 (K/uL) Final Immature Granulocytes, Number 02/25/2024 15:16:47 0.05 0.00-0.20 (K/uL) Final Performing Location LABORATORY [facility] [place] - [address] [facility] [address]
--- OUTSIDE RECORDS SUMMARY | 2024-05-16 05:23 | External Medical Summary ---
Author Name Unknown Address Unknown Organization K01:LABORATORY C - [address] [place] [address] Laboratory Report Ordering Provider Test Date Status SÁNCHEZ RODRÍGUEZ 02/25/2024 15:16:47 Final Observation Date Value Abnormality Reference (Units ) Status TSH 02/25/2024 15:16:47 1.32 0.27-4.20 (uIU/mL) Final Performing Location LABORATORY [facility] - [address] [place] [address]
--- OUTSIDE RECORDS SUMMARY | 2024-05-16 05:23 | External Medical Summary | Summary of Care ---
Author Name Unknown Organization [facility] Address [address] [place] [address] Phone [phone] Care Team Providers Care Branch Office Administrator Name Role Phone Dilcia Arndt MD Primary Care Provider [phone] Reason for Visit * Reason Comments Outpatient Testing Encounter Details Date Type Department Care Team (Late st Contact Info) Description 02/25/2024 2:20 PM EST Laboratory Laboratory, [facility] [address] [place] [id number] [facility] [address] [place] [address] Encounter for supervision of other normal , unspecified trimester Allergies No known active allergiesdocumented as of [...] money to get more. Never true 12/21/2023 [place] Depression Scale Answer Date Recorded [place] Depression Scale Total 5 10/29/2023 The thought [...] No 12/21/2023 Does the household have a [facility] source of income? 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 Not on file documented as of this encounter Plan of Treatment Upcoming Encounters Date Type Department Care Team (Late st Contact Info) Description 03/13/2024 4:30 PM EST Office Visit Gynecology/Obstetrics Jojo Allen [address] [place] [address] Mary Jane Haro PA-C [address] [place] [address] Pending Results Name Type Priority Associated Diagnoses Date /Time 50-G GESTATIONAL GLUCOSE, 1 HOUR Lab Routine Encounter for supervision of other normal , unspecified trimester 02/25/2024 3:16 PM EST SYPHILIS ANTIBODY SCREEN WITH REFLEX TO RPR Lab Routine Encounter for supervision of other normal , unspecified trimester 02/25/2024 3:16 PM EST CBC WITH WBC DIFFERENTIAL AND ANEMIA REFLEX WORKUP Lab Routine Encounter for supervision of other normal , unspecified trimester 02/25/2024 3:16 PM EST SYPHILIS ANTIBODY SCREEN Lab Routine Encounter for supervision of other normal , unspecified trimester 02/25/2024 3:16 PM EST ANEMIA CBC Lab Routine Encounter for supervision of other normal , unspecified trimester 02/25/2024 3:16 PM EST DIFFERENTIAL, AUTOMATED Lab Routine Encounter for supervision of other normal , unspecified trimester 02/25/2024 3:16 PM EST ANEMIA REFLEX CHEMISTRY HOLD Lab Routine Encounter for supervision of other normal , unspecified trimester 02/25/2024 3:16 PM EST Health Maintenance Due Date Last Done Comments Depression Screening 2010 COVID-19 Vaccine ( season) 2023 Influenza Vaccine [...] as of this encounter Visit Diagnoses Diagnosis Encounter for supervision of other normal , unspecified trimester documented in this encounter Care Teams Branch Office Administrator Relationship Specialty Start Date End Date Dilcia Arndt MD PCP - General 04/26/08 documented as of this encounter
--- OUTSIDE RECORDS SUMMARY | 2024-05-16 05:23 | External Medical Summary | Summary of Care ---
Author Name Unknown Organization [facility] Address [address] [facility] [address] Phone [phone] Care Team Providers Care Stem Mounter Name Role Phone Dilcia Arndt MD Primary Care Provider [phone] Reason for Visit * Reason Comments Return Visit Encounter Details Date Type Department Care Team (Late st Contact Info) Description 04/21/2024 7:45 AM EDT Office Visit Gynecology/Obstetric s Jojo Allen [address] [place] [address] Mary Jane Haro PA-C [address] [place] [address] Encounter for supervision of other normal , unspecified trimester*; History of gestational hypertension Allergies No known active allergiesdocumented as of this encounter (statuses as of 04/21/2024) Medications DULoxetine HCl 20 MG Oral Capsule Delayed Release Particles Take 2 Capsules by mouth in the morning. Active 28-0.8 MG Oral Tablet Take by mouth. Active documented as of this encounter (statuses as of 04/21/2024) Active Problems Problem Noted Date Diagnosed Date History of gestational hypertension 11/24/2023 Encounter for supervision of other normal , unspecified trimester 11/24/2023 Elevated ALT measurement 11/01/2023 Iron deficiency anemia 08/25/2022 Femoral anteversion 06/14/2002 Flat foot(734) 06/14/2002 Estimated Date of Delivery Comme nts Yes 05/20/2024 Based on last me nstrual period of 08/14/2023 (Exact Date) documented as of this encounter (statuses as of 04/21/2024) Resolved Problems Problem Noted Date Diagnosed Date [...] as of this encounter (statuses as of 04/21/2024) Immunizations Name Administration Dates Next Due TDAP [...] money to get more. Never true 12/21/2023 [place] Depression Scale Answer Date Recorded [place] Depression Scale Total 6 04/05/2024 The thought [...] No 12/21/2023 Does the household have a [facility] source of income? 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 Doing well. Denies VB, LOF, contractions. Pos fm. Reviewed GBS next visit RTC in 1 week Mary Jane Haro PA-C * Casasndra Koehler CMA - 04/21/2024 7:39 AM EDT 35w6d Denies any concerns documented in this encounter Plan of Treatment Upcoming Encounters Date Type Department Care Team (Late st Contact Info) Description 04/27/2024 3:00 PM EDT Office Visit Gynecology/Obstetics [facility] [address] [place] [phone] Shannan Strong PA-C [address] [place] [address] 05/03/2024 8:30 AM EDT Office Visit Gynecology/Obstetrics [facility] [address] [place] [address] DamionerDomenica CRNP [address] [place] [address] Health Maintenance Due Date Last Done Comments [...] for supervision of other normal , unspecified trimester- Primary History of gestational hypertension documented in this encounter Care Teams Stem Mounter Relationship Specialty Start Date End Date Dilcia Arndt MD PCP - General 04/26/08 documented as of this encounter
--- OUTSIDE RECORDS SUMMARY | 2024-05-16 05:23 | External Medical Summary | Summary of Care ---
Author Name Unknown Organization [facility] Address [address] [place] [address] Phone [phone] Care Team Providers Care Wet And Dry Sugar Bin Operator Name Role Phone Dilcia Arndt MD Primary Care Provider [phone] Reason for Visit * Reason Comments Outpatient Testing Encounter Details Date Type Department Care Team ([facility] st Contact Info) Description 04/27/2024 3:20 PM EDT Laboratory Laboratory Patient Service [address] [phone] [address] [address] Antepartum anemia complicating Allergies No known active allergiesdocumented as of this encounter (statuses as of 04/27/2024) Medications DULoxetine HCl 20 MG Oral Capsule Delayed Release Particles Take 2 Capsules by mouth in the morning. Active 28-0.8 MG Oral Tablet Take by mouth. Active documented as of this encounter (statuses as of 04/27/2024) Active Problems Problem Noted Date Diagnosed Date History of gestational hypertension 11/24/2023 Encounter for supervision of other normal , unspecified trimester 11/24/2023 Elevated ALT measurement 11/01/2023 Iron deficiency anemia 08/25/2022 Femoral anteversion 06/14/2002 Flat foot(734) 06/14/2002 Estimated Date of Delivery Comme nts Yes 05/20/2024 Based on last me nstrual period of 08/14/2023 (Exact Date) documented as of this encounter (statuses as of 04/27/2024) Resolved Problems Problem Noted Date Diagnosed Date [...] as of this encounter (statuses as of 04/27/2024) Immunizations Name Administration Dates Next Due TDAP [...] money to get more. Never true 12/21/2023 [place] Depression Scale Answer Date Recorded [place] Depression Scale Total 6 04/05/2024 The thought [...] 12/21/2023 Does the household have a re lar source of income? 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 Not on file documented as of this encounter Plan of Treatment Upcoming Encounters Date Type Department Care Team (Late st Contact Info) Description 05/03/2024 8:30 AM EDT Office Visit Gynecology/Obstetrics [facility] [address] [place] [address] Domenica Neely CRNP [address] [place] [address] 05/11/2024 3:45 PM EDT Office Visit Gynecology/Obstetrics [facility] [address] [place] [address] Mary Jo Carlson PA-C [address] [place] [address] Pending Results Name Type Priority Associated Diagnoses Date /Time CBC WITH WBC DIFFERENTIAL AND ANEMIA REFLEX WORKUP Lab Routine Antepartum anemia complicating 04/27/2024 3:18 PM EDT ANEMIA CBC Lab Routine Antepartum anemia complicating 04/27/2024 3:18 PM EDT DIFFERENTIAL, AUTOMATED Lab Routine Antepartum anemia complicating 04/27/2024 3:18 PM EDT ANEMIA REFLEX CHEMISTRY HOLD Lab Routine Antepartum anemia complicating 04/27/2024 3:18 PM EDT Health Maintenance Due Date Last Done Comments [...] as of this encounter Visit Diagnoses Diagnosis Antepartum anemia complicating Anemia, antepartum documented in this encounter Care Teams Wet And Dry Sugar Bin Operator Relationship Specialty Start Date End Date Dilcia Arndt MD PCP - General 04/26/08 documented as of this encounter
--- OUTSIDE RECORDS SUMMARY | 2024-05-16 05:23 | External Medical Summary ---
Author Name Unknown Address Unknown Organization K01:[facility] [place] [address] [facility] [address] Laboratory Report Ordering Provider Test Date Status SÁNCHEZ RODRÍGUEZ 02/25/2024 15:16:47 Final Observation Date Value Abnormality Reference (Units ) Status WBC, Total 02/25/2024 15:16:47 9.60 4.00-10.8 0 (K/uL) Final RBC 02/25/2024 15:16:47 4.01 3.85-5.15 (M/uL) Final Hemoglobin 02/25/2024 15:16:47 11.9 Below low normal 12 .0-15.3 (g/dL) Final Anemia reflex testing trigge rs on a HGB < 12.0 for Females and HGB < 13.0 for Males in accordance with the WHO Anemia Guidelines
Anemia reflex testing triggers on a HGB < 12.0 for Females and HGB < 13.0 for Males in accordance with the WHO Anemia Guidelines HCT 02/25/2024 15:16:47 37.5 36.0-45.2 (%) Final MCV 02/25/2024 15:16:47 93.5 81.5-97.5 (fL) Final MCH 02/25/2024 15:16:47 29.7 27.0-34.0 (pg) Final MCHC 02/25/2024 15:16:47 31.7 32.0-36.0 (g/dL) Final RDW 02/25/2024 15:16:47 12.5 11.5-15.5 (%) Final Platelets 02/25/2024 15:16:47 253 140-400 (K /uL) Final MPV 02/25/2024 15:16:47 9.7 6.6-11.1 ( fL) Final Nucleated erythrocytes/100 leukocytes [Ratio] in Blood by Automated count 02/25/2024 15:16:47 0 <=0 (/100 WBCs) Fi nal Performing Location LABORATORY [facility] - [address] [facility] [address]
--- OUTSIDE RECORDS SUMMARY | 2024-05-16 05:23 | External Medical Summary ---
Author Name Unknown Address Unknown Organization K01:LABORATORY [facility] [place] [address] [place] [address] Laboratory Report Ordering Provider Test Date Status NONA DAVE 04/27/2024 15:18:03 Final Observation Date Value Abnormality Reference (Units ) Status Creatinine 04/27/2024 15:18:03 0.6 0.5-1.0 (mg/dL) Final Glomerular filtration rate/1.73 sq M.predicted [Volume Rate/Area] in Serum, Plasma or Blood by Creatinine-based formula (CKD-EPI) 04/27/2024 15:18:03 >90 >=60 (mL/min) Final eGFR is calculated based on the CKD-EPI 2020 equation. Performing Location LABORATORY [facility] [place] - [address] [place] [address]
--- OUTSIDE RECORDS SUMMARY | 2024-05-16 05:23 | External Medical Summary | Summary of Care ---
Author Name Unknown Organization [facility] Address [address] [address] Phone [phone] Care Team Providers Care Hop Grower Name Role Phone Dilcia Arndt MD Primary Care Provider [phone] Reason for Visit * Reason Comments Return Visit Encounter Details Date Type Department Care Team (Late st Contact Info) Description 03/13/2024 4:30 PM EST Office Visit Gynecology/Obstetric s Jojo Allen [address] [place] [address] Mary Jane Haro PA-C [address] [place] [address] Encounter for supervision of other normal , unspecified trimester*; History of gestational hypertension; Uterine size date discrepancy Allergies No known active allergiesdocumented as of this encounter (statuses as of 03/14/2024) Medications DULoxetine HCl 20 MG Oral Capsule Delayed Release Particles Take 2 Capsules by mouth in the morning. Active 28-0.8 MG Oral Tablet Take by mouth. Active documented as of this encounter (statuses as of 03/14/2024) Active Problems Problem Noted Date Diagnosed Date History of gestational hypertension 11/24/2023 Encounter for supervision of other normal , unspecified trimester 11/24/2023 Elevated ALT measurement 11/01/2023 Iron deficiency anemia 08/25/2022 Femoral anteversion 06/14/2002 Flat foot(734) 06/14/2002 Estimated Date of Delivery Comme nts Yes 05/20/2024 Based on last me nstrual period of 08/14/2023 (Exact Date) documented as of this encounter (statuses as of 03/14/2024) Resolved Problems Problem Noted Date Diagnosed Date [...] as of this encounter (statuses as of 03/14/2024) Immunizations Name Administration Dates Next Due TDAP [...] money to get more. Never true 12/21/2023 [place] Depression Scale Answer Date Recorded [place] Depression Scale Total 5 10/29/2023 The thought [...] No 12/21/2023 Does the household have a [facility] source of income? 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 Advised to increase iron in diet. Has been trying. Feels getting lightheaded at times. Discussed pushing fluids increase to 64 ounces a day as she is drinking less than that. Okay to add once daily oral iron given symptoms. Recheck in4-6 weeks. Reviewed possible SE of iron supplementation. Mild bilateral swelling, worse at end of day improves in AM. Exam unremarkable. Reviewed compression stockings. BP normal. S>D, growth ordered for next visit Denies VB, LOF, contractions, Pos fm. RTC in 2 weeks documented in this encounter Nursing Notes * Zari Coronel LPN - 03/13/2024 4:24 PM EST 30w2d Denies vaginal bleeding/rom + movement Lightheadedness documented in this encounter Plan of Treatment Upcoming Encounters Date Type Department Care Team (Late st Contact Info) Description 03/27/2024 3:30 PM EST Imaging Radiology [facility] [address] [place] [address] 03/30/2024 3:30 PM EST Office Visit Gynecology/Obstetrics [facility] [address] [place] [address] Mary Jo Carlson PA-C [address] [place] [address] Scheduled Orders Name Type Priority Associated Diagnoses Orde r Schedule US PREG FOLLOW-UP EACH FETUS Medical Imaging Routine Uterine size date discrepancy Expected: 03/13/2024, Expires: 04/10/2025 Health Maintenance Due Date Last Done Comments [...] unspecified trimester- Primary History of gestational hypertension Uterine size date discrepancy Uterine size date discrepancy, antepartum condition or complication documented in this encounter Care Teams Hop Grower Relationship Specialty Start Date End Date Dilcia Arndt MD PCP - General 04/26/08 documented as of this encounter
--- OUTSIDE RECORDS SUMMARY | 2024-05-16 05:23 | External Medical Summary ---
Author Name Unknown Address Unknown Organization K01:LABORATORY [facility] [place] - [address] [place] [address] Laboratory Report Ordering Provider Test Date Status SÁNCHEZ RODRÍGUEZ 02/25/2024 15:16:47 Final Observation Date Value Abnormality Reference (Units ) Status Folic Acid 02/25/2024 15:16:47 18.1 >4.5 (ng/ mL) Final Performing Location LABORATORY [facility] [place] - [address] [place] [address]
--- OUTSIDE RECORDS SUMMARY | 2024-05-16 05:23 | External Medical Summary ---
Author Name Unknown Address Unknown Organization K01:LABORATORY [facility] [place] - [address] [place] [address] Laboratory Report Ordering Provider Test Date Status NONA DAVE 04/27/2024 15:18:03 Final Observation Date Value Abnormality Reference (Units ) Status SYNC LEUKOCYTES IN BLOOD BY AUTOMATED COUNT 04/27/2024 15:18:03 10.17 4.00-10.80 (K/uL) Final Segs 04/27/2024 15:18:03 73.5 40.0-75.0 (%) Final Lymphs % 04/27/2024 15:18:03 18.9 18.0-42.0 (%) Final Monos 04/27/2024 15:18:03 6.9 1.0-11.0 (%) Final Eosinophils 04/27/2024 15:18:03 0.2 0.0-6.0 (%) Final Basos 04/27/2024 15:18:03 0.1 0.0-2.0 (%) Final Immature Granulocyte, Percent 04/27/2024 15:18:03 0.4 0.0-2.0 (%) Final Absolute Segs 04/27/2024 15:18:03 7.48 1.80-7.70 (K/uL) Final Lymphs, absolute 04/27/2024 15:18:03 1.92 1.00-4.80 (K/ul) Final Monos, Abs 04/27/2024 15:18:03 0.70 0.00-1.10 (K/uL) Final Eos, Abs 04/27/2024 15:18:03 0.02 0.00-0.70 (K/uL) Final Basos, Abs 04/27/2024 15:18:03 0.01 0.00-0.20 (K/uL) Final Immature Granulocytes, Number 04/27/2024 15:18:03 0.04 0.00-0.20 (K/uL) Final Performing Location LABORATORY [facility] [place] - [address] [facility] [address]
--- OUTSIDE RECORDS SUMMARY | 2024-05-16 05:23 | External Medical Summary ---
Author Name Unknown Address Unknown Organization K01:LABORATORY [facility] [place] - [facility] [address] [facility] [address] [facility] [address] Laboratory Report Ordering Provider Test Date Status PJ RODRÍGUEZMASON 02/25/2024 15:16:47 Final Observation Date Value Abnormality Reference (Units ) Status Retic, % (auto) 02/25/2024 15:16:47 1.65 0.80-1.90 (%) Final Reticulocytes, Absolute 02/25/2024 15:16:47 66.7 31.3-100.1 (K/uL) Final Reticulocyte fraction, immature 02/25/2024 15:16:47 25.2 Above high normal 2.5-20.6 (%) Final Reticulocyte HGB 02/25/2024 15:16:47 29.0 Below low normal 29.7-37.4 (pg) Final Performing Location LABORATORY [facility] [place] - [facility] [address] [facility] [address]
--- OUTSIDE RECORDS SUMMARY | 2024-05-16 05:23 | External Medical Summary | Summary of Care ---
Author Name Unknown Organization [facility] Address [address] [facility] [place] [address] Phone [phone] Care Team Providers Care Signal Tester Name Role Phone Dilcia Arndt MD Primary Care Provider [phone] Reason for Visit * Reason Comments Return Visit Encounter Details Date Type Department Care Team (Late st Contact Info) Description 04/05/2024 3:15 PM EST Office Visit Gynecology/Obstetric s Jojo Allen [address] [place] [address] Radha Padgett CRNP [address] [place] [address] History of gestational hypertension*; Encounter for supervision of other normal , unspecified trimester Allergies No known active allergiesdocumented as of this encounter (statuses as of 04/05/2024) Medications DULoxetine HCl 20 MG Oral Capsule Delayed Release Particles Take 2 Capsules by mouth in the morning. Active 28-0.8 MG Oral Tablet Take by mouth. Active documented as of this encounter (statuses as of 04/05/2024) Active Problems Problem Noted Date Diagnosed Date History of gestational hypertension 11/24/2023 Encounter for supervision of other normal , unspecified trimester 11/24/2023 Elevated ALT measurement 11/01/2023 Iron deficiency anemia 08/25/2022 Femoral anteversion 06/14/2002 Flat foot(734) 06/14/2002 Estimated Date of Delivery Comme nts Yes 05/20/2024 Based on last me nstrual period of 08/14/2023 (Exact Date) documented as of this encounter (statuses as of 04/05/2024) Resolved Problems Problem Noted Date Diagnosed Date [...] as of this encounter (statuses as of 04/05/2024) Immunizations Name Administration Dates Next Due TDAP [...] money to get more. Never true 12/21/2023 [place] Depression Scale Answer Date Recorded [place] Depression Scale Total 6 04/05/2024 The thought [...] No 12/21/2023 Does the household have a [facility] source of income? 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 Baby is active. No contractions or bleeding. Planning to bottle feed. Likely will go back on OCPs. Growth u/s since last visit, 44th percentile, NOREEN 19cm. RICHARD Cheung * Cassandra Koehler CMA - 04/05/2024 3:07 PM EST 33w4d Denies any concerns documented in this encounter Plan of Treatment Upcoming Encounters Date Type Department Care Team (Late st Contact Info) Description 04/19/2024 8:15 AM EDT [facility] [address] [place] [address] Radha Padgett CRNP [address] [place] [address] 05/03/2024 8:30 AM EDT [facility] [address] [place] [address] BackDomenica torres CRNP [address] [place] [address] Health Maintenance Due Date Last Done Comments [...] trimester documented in this encounter Care Teams Signal Tester Relationship Specialty Start Date End Date Dilcia Arndt MD PCP - General 04/26/08 documented as of this encounter
--- OUTSIDE RECORDS SUMMARY | 2024-05-16 05:23 | External Medical Summary ---
Author Name Unknown Address Unknown Organization [id number]:LABORATORY [facility] [place] - [facility] [address] [place] [address] Laboratory Report Ordering Provider Test Date Status NONA DAVE 04/27/2024 15:18:03 Final Observation Date Value Abnormality Reference (Units ) Status WBC, Total 04/27/2024 15:18:03 10.17 4.00-10.8 0 (K/uL) Final RBC 04/27/2024 15:18:03 4.35 3.85-5.15 (M/uL) Final Hemoglobin 04/27/2024 15:18:03 11.7 Below low normal 12 .0-15.3 (g/dL) Final Anemia reflex testing trigge rs on a HGB < 12.0 for Females and HGB < 13.0 for Males in accordance with the WHO Anemia Guidelines
Anemia reflex testing triggers on a HGB < 12.0 for Females and HGB < 13.0 for Males in accordance with the WHO Anemia Guidelines HCT 04/27/2024 15:18:03 38.1 36.0-45.2 (%) Final MCV 04/27/2024 15:18:03 87.6 81.5-97.5 (fL) Final MCH 04/27/2024 15:18:03 26.9 27.0-34.0 (pg) Final MCHC 04/27/2024 15:18:03 30.7 32.0-36.0 (g/dL) Final RDW 04/27/2024 15:18:03 12.6 11.5-15.5 (%) Final Platelets 04/27/2024 15:18:03 297 140-400 (K /uL) Final MPV 04/27/2024 15:18:03 10.2 6.6-11.1 ( fL) Final Nucleated erythrocytes/100 leukocytes [Ratio] in Blood by Automated count 04/27/2024 15:18:03 0 <=0 (/100 WBCs) [facility] Performing Location LABORATORY [facility] [place] - [address] [facility] [address]
--- OUTSIDE RECORDS SUMMARY | 2024-05-16 05:23 | External Medical Summary | Summary of Care ---
Author Name Unknown Organization [facility] Address [address] [place] [address] Phone [phone] Care Team Providers Care Sawmill Relief Worker Name Role Phone Dilcia Arndt MD Primary Care Provider [phone] Encounter Details Date Type Department Care Team (Late st Contact Info) Description 02/29/2024 Population Health External Data Unspecified Department Allergies No known active allergiesdocumented as of this encounter (statuses as of 02/29/2024) Medications DULoxetine HCl 20 MG Oral Capsule Delayed Release Particles Take 2 Capsules by mouth in the morning. Active 28-0.8 MG Oral Tablet Take by mouth. Active documented as of this encounter (statuses as of 02/29/2024) Active Problems Problem Noted Date Diagnosed Date History of gestational hypertension 11/24/2023 Encounter for supervision of other normal , unspecified trimester 11/24/2023 Elevated ALT measurement 11/01/2023 Iron deficiency anemia 08/25/2022 Femoral anteversion 06/14/2002 Flat foot(734) 06/14/2002 Estimated Date of Delivery Comme nts Yes 05/20/2024 Based on last me nstrual period of 08/14/2023 (Exact Date) documented as of this encounter (statuses as of 02/29/2024) Resolved Problems Problem Noted Date Diagnosed Date [...] as of this encounter (statuses as of 02/29/2024) Immunizations Name Administration Dates Next Due TDAP [...] money to get more. 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 [address] [address] Mary Jane Haro PA-C [address] [place] [address] Health Maintenance Due Date Last Done Comments [...] filedocumented as of this encounter Care Teams Sawmill Relief Worker Relationship Specialty Start Date End Date Dilcia Arndt MD PCP - General 04/26/08 documented as of this encounter
--- OUTSIDE RECORDS SUMMARY | 2024-05-16 05:23 | External Medical Summary ---
Author Name Unknown Address Unknown Organization [id number]:[place] [facility] [place] [facility] [place] [address] Laboratory Report Ordering Provider Test Date Status NONA DAVE 04/27/2024 15:17:39 Final Observation Date Value Abnormality Reference (Units ) Status Streptococcus agalactiae DNA [Presence] in Specimen by NOMAN with probe detection 04/27/2024 15:17:39 Negative Negative Final No Group B Streptococcus det ected by culture-enhanced PCR (amplified probe). GBS GBSCT - [facility] 04/27/2024 15:17:39 0.0 Final GBS SPCCT - [facility] 04/27/2024 15:17:39 31.0 Final Performing Location [facility] [facility] [place] [facility] [place] [address]
--- OUTSIDE RECORDS SUMMARY | 2024-05-16 05:23 | External Medical Summary ---
Author Name Unknown Address Unknown Organization [id number]:LABORATORY [facility] - [address] [place] [address] Laboratory Report Ordering Provider Test Date Status SÁNCHEZ RODRÍGUEZ 02/25/2024 15:16:47 Final Observation Date Value Abnormality Reference (Units ) Status Ferritin 02/25/2024 15:16:47 7 Below low normal 13- 150 (ng/mL) Final Performing Location [facility]ORY [facility] [place] - [address] [place] [address]
--- OUTSIDE RECORDS SUMMARY | 2024-05-16 05:23 | External Medical Summary ---
Author Name Unknown Address Unknown Organization [id number]:LAB[facility]ATORY [facility] [place] - [address] [place] [address] Laboratory Report Ordering Provider Test Date Status SÁNCHEZ RODRÍGUEZ 02/25/2024 15:16:47 Final Observation Date Value Abnormality Reference (Units ) Status Treponema pallidum Ab [Presence] in Serum by Immunoassay 02/25/2024 15:16:47 Nonreactive Nonreactive Final No serologic evidence of syp hilis. No additional testing clinicially indicated at this time. Consider repeat testing in 2-4 weeks if acute or primary syphilis is suspected. Performing Location LABORATORY [facility] [place] - [address] [place] [address]
--- OUTSIDE RECORDS SUMMARY | 2024-05-16 05:24 | External Medical Summary | Summary of Care ---
Author Name Unknown Organization [facility] Address [address] [facility] [address] Phone [phone] Care Team Providers Care Financial Planning Adviser Name Role Phone Dilcia Arndt MD Primary Care Provider [phone] Reason for Visit * Reason Comments Return Visit Encounter Details Date Type Department Care Team (Late st Contact Info) Description 12/22/2023 2:15 PM EST Office Visit Gynecology/Obstetric s [facility] [address] [place] [address] Radha Padgett CRNP [address] [place] [address] Encounter for supervision of normal in multigravida in second trimester*; History of gestational hypertension Allergies No known active allergiesdocumented as of this encounter (statuses as of 12/22/2023) Medications DULoxetine HCl 20 MG Oral Capsule Delayed Release Particles Take 2 Capsules by mouth in the morning. Active 28-0.8 MG Oral Tablet Take by mouth. Active documented as of this encounter (statuses as of 12/22/2023) Active Problems Problem Noted Date Diagnosed Date History of gestational hypertension 11/24/2023 Encounter for supervision of other normal , unspecified trimester 11/24/2023 Elevated ALT measurement 11/01/2023 Iron deficiency anemia 08/25/2022 Femoral anteversion 06/14/2002 Flat foot(734) 06/14/2002 Estimated Date of Delivery Comme nts Yes 05/20/2024 Based on last me nstrual period of 08/14/2023 (Exact Date) documented as of this encounter (statuses as of 12/22/2023) Resolved Problems Problem Noted Date Diagnosed Date [...] as of this encounter (statuses as of 12/22/2023) Immunizations Name Administration Dates Next Due TDAP (age 10 and older)(Boostrix) 08/17/2022 documented as of this encounter Social History [...] money to get more. Never true 12/21/2023 [place] Depression Scale Answer Date Recorded [place] Depression Scale Total 5 10/29/2023 The thought [...] Sign Reading Time Taken Comments Blood Pressure 108/68 12/22/2023 2:09 PM EST Pulse - - Temperature - - Respiratory Rate - - Oxygen Saturation - - Inhaled Oxygen Concentration - - Weight 63 kg (139 lb) 12/22/2023 2:09 PM EST Height - - Body Mass Index 25.42 10/25/2023 11:34 AM EDT documented in this encounter Progress Notes * Radha Padgett CRNP - 12/22/2023 2:21 PM EST 18w4d Complaints: none Feeling well. +FM. No contractions, bleeding, or LOF. MSAFP today. Anatomy u/s in 2 weeks. RICHARD Cheung * Cassandra Koehler CMA - 12/22/2023 2:09 PM EST 18w4d Denies any concerns documented in this encounter Plan of Treatment Pending Results Name Type Priority Associated Diagnoses Date /Time MATERNAL SERUM AFP Lab Routine Encounter for supervision of normal in multigravida in second trimester 12/22/2023 2:30 PM EST Scheduled Orders Name Type Priority Associated Diagnoses Orde r Schedule US PREG SINGLE/1ST GEST, 14 WEEKS OR LATER Medical Imaging Routine Encounter for supervision of normal in multigravida in second trimester Expected: 01/03/2024 (Approximate), Expires: 01/20/2025 Health Maintenance Due Date Last Done Comments Depression Screening 2010 COVID-19 Vaccine ( season) 2023 Influenza Vaccine (FLU shot) (#1) 2023 02/28/2016, 11/16/2013 Pap Smear 03/25/2025 03/25/2022 DTap/Tdap Vaccines (8 - Td or Tdap) 08/17/2032 08/17/2022, 09/19/2009, 08/20/2003, Additional history exists Hepatitis B Vaccine Completed 07/17/1999, 1998, 1998 HPV (Gardasil) Vaccine Completed 4, 12/09/2012, 09/23/2012 MENINGOCOCCAL (MENACTRA/MENVEO) Completed 11/24/2014, 09/19/2009 Gonorrhea / Chlamydia Screen Discontinued 10/29/2023, 03/25/2022 Pneumococcal Vaccine: Pediatrics (0 to 5 Years) and At-Risk Patients (6 to 64 Years) Aged Out No longer eligible based on patient's age to complete this topic documented as of this encounter Medical Devices Not on filedocumented as of this encounter Visit Diagnoses Diagnosis Encounter for supervision of normal in multigravida in second trimester- Primary History of gestational hypertension documented in this encounter Care Teams Financial Planning Adviser Relationship Specialty Start Date End Date Dilcia Arndt MD PCP - General 04/26/08 documented as of this encounter
--- OUTSIDE RECORDS SUMMARY | 2024-05-16 05:24 | External Medical Summary | Summary of Care ---
Author Name Unknown Organization [facility] Address [address] [place] [place] [address] Phone [phone] Care Team Providers Care Topstitcher Zigzag Name Role Phone Dilcia Arndt MD Primary Care Provider [phone] Reason for Visit * Reason Comments Return Visit Encounter Details Date Type Department Care Team (Late st Contact Info) Description 01/26/2024 2:00 PM EST Office Visit Gynecology/Obstetric s [facility] [address] [place] [address] Radha Padgett CRNP [address] [place] [address] Encounter for supervision of other normal , unspecified trimester*; History of gestational hypertension Allergies No known active allergiesdocumented as of this encounter (statuses as of 01/26/2024) Medications DULoxetine HCl 20 MG Oral Capsule Delayed Release Particles Take 2 Capsules by mouth in the morning. Active 28-0.8 MG Oral Tablet Take by mouth. Active documented as of this encounter (statuses as of 01/26/2024) Active Problems Problem Noted Date Diagnosed Date History of gestational hypertension 11/24/2023 Encounter for supervision of other normal , unspecified trimester 11/24/2023 Elevated ALT measurement 11/01/2023 Iron deficiency anemia 08/25/2022 Femoral anteversion 06/14/2002 Flat foot(734) 06/14/2002 Estimated Date of Delivery Comme nts Yes 05/20/2024 Based on last me nstrual period of 08/14/2023 (Exact Date) documented as of this encounter (statuses as of 01/26/2024) Resolved Problems Problem Noted Date Diagnosed Date [...] as of this encounter (statuses as of 01/26/2024) Immunizations Name Administration Dates Next Due TDAP [...] money to get more. 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 Good FM. No contractions, bleeding, or LOF. Glucola with next visit. RICHARD Cheung * Cassandra Koehler CMA - 01/26/2024 2:00 PM EST 23w4d Denies any concerns documented in this encounter Plan of Treatment Scheduled Orders Name Type Priority Associated Diagnoses Orde r Schedule 50-G GESTATIONAL GLUCOSE, 1 HOUR Lab Routine Encounter for supervision of other normal , unspecified trimester Expected: 02/26/2024 (Approximate), Expires: 01/25/2025 SYPHILIS ANTIBODY SCREEN WITH REFLEX TO RPR Lab Routine Encounter for supervision of other normal , unspecified trimester Expected: 02/26/2024 (Approximate), Expires: 01/25/2025 CBC WITH WBC DIFFERENTIAL AND ANEMIA REFLEX WORKUP Lab Routine Encounter for supervision of other normal , unspecified trimester Expected: 02/26/2024 (Approximate), Expires: 01/25/2025 Health Maintenance Due Date Last Done Comments [...] hypertension documented in this encounter Care Teams Topstitcher Zigzag Relationship Specialty Start Date End Date Dilcia Arndt MD PCP - General 04/26/08 documented as of this encounter
--- OUTSIDE RECORDS SUMMARY | 2024-05-16 05:24 | External Medical Summary | Summary of Care ---
Author Name Unknown Organization [facility] Address [address] [facility] [place] [address] Phone [phone] Care Team Providers Care Ornamental Bronze Worker Name Role Phone Dilcia Arndt MD Primary Care Provider [phone] Reason for Visit * Reason Comments Return Visit Encounter Details Date Type Department Care Team (Late st Contact Info) Description 11/24/2023 2:15 PM EDT Office Visit Gynecology/Obstetric s [facility] [address] [place] [address] Radha Padgett CRNP [address] [place] [address] Encounter for supervision of other normal , unspecified trimester*; History of gestational hypertension Allergies No known active allergiesdocumented as of this encounter (statuses as of 11/24/2023) Medications Medication Sig Dispensed Refills Start Date End Date Status DULoxetine HCl 20 MG Oral Capsule Delayed Release Particles Take 2 Capsules by mouth in the morning. Active 28-0.8 MG Oral Tablet Take by mouth. Active documented as of this encounter (statuses as of 11/24/2023) Active Problems Problem Noted Date Diagnosed Date History of gestational hypertension 11/24/2023 Encounter for supervision of other normal , unspecified trimester 11/24/2023 Elevated ALT measurement 11/01/2023 Iron deficiency anemia 08/25/2022 Femoral anteversion 06/14/2002 Flat foot(734) 06/14/2002 Estimated Date of Delivery Comme nts Yes 05/20/2024 Based on last me nstrual period of 08/14/2023 (Exact Date) documented as of this encounter (statuses as of 11/24/2023) Resolved Problems Problem Noted Date Diagnosed Date Resolved Date Gestational hypertension wit hout significant proteinuria 10/22/2022 12/04/2022 Antepartum anemia complicating 08/19/2022 12/04/2022 Overview: Hemoglobin 10.0 on 08/17/22; blood management referral placed High-risk 03/25/2022 12/05/19 Adjustment disorder with mix ed anxiety and depressed mood 03/25/2022 12/04/2022 Overview: Taking cymbalta at NO[facility], planning to continue on this documented as of this encounter (statuses as of 11/24/2023) Immunizations Name Administration Dates Next Due TDAP [...] the money to buy more. Never true 10/25/19 24 Within the past 12 months, t he food you bought just didn't last and you didn't have money to get more. Never true 10/25/2023 [place] Depression Scale Answer Date Recorded [place] Depression Scale Total 5 10/29/2023 The thought of harming myself has occurred to me . Never 10/29/2023 Childcare Answer Date Recorded Do you feel overwhelmed with taking care of a child, family member or friend? No 10/25/2023 Does your family need help f inding childcare? (Household - for ages 0-17 years) Not on file 10/25/2023 Clothing Answer Date Recorded Have you been unable to get clothing when it was really needed? No 10/25/2023 Is your family able to get c lothes or diapers when needed? (Household - for ages 0-17 years) Not on file 10/25/2023 Personal Safety Answer Date Recorded Do you feel unsafe or have concerns for your saf ety? No 10/25/2023 Do you have concerns for you r family's safety? (Household - for ages 0-17 years) Not on file 10/25/2023 Utilities Answer Date Recorded Do you have trouble paying y our heating, water, or electric bill? No 10/25/2023 Is your family able to pay t he heat, water, or electric bill? (Household - for ages 0-17 years) Not on file 10/25/2023 Does your family have access to good internet? (Household - for ages 0-17 years) Not on file 10/25/2023 Employment Status Answer Date Recorded Are you unemployed or without regular income? No 10/25/2023 Does the household have a re gular source of income? (Household - for ages 0-17 years) Not on file 10/25/2023 Social Connections Answer Date Recorded How often do you feel lonely or isolated from th ose around you? Rarely 10/25/2023 Financial Resource Strain Answer Date R ecorded Do you have any trouble payi ng for your medications, or do you think you might in the future? No 10/25/2023 Does your family have troubl e paying for medicine? (Household - for ages 0-17 years) Not on file 10/25/2023 Transportation Needs Answer Date Record ed Do you have trouble getting a ride to medical visits or work? (Adult - for ages 18 years and over) Not on file 10/25/2023 Does your family have a hard time getting a ride to doctors visits? (Household - for ages 0-17 years) Not on file 10/25/2023 Has lack of transportation k ept you from medical appointments, meetings, work, or from getting things needed for daily living? Check all that apply. No 10/25/2023 Do you (or your family) have trouble finding or paying for a ride (transportation)? (Household - for ages 0-17 years) Not on file 10/25/2023 Housing Stability Answer Date Recorded Do you currently live in a s helter or have no steady place to sleep at night? No 10/25/2023 Do you think you are at risk of becoming homeless? (Adult - for ages 18 years and over) Not on file 10/25/2023 Does your family worry about paying for your home or becoming homeless? (Household - for ages 0-17 years) Not on file 0 10/25/2023 Are you homeless or worried that you might be in the future? No 10/25/2023 Are you (or your family) omkar eless or worried that you might be in the future? (Household - for ages 0-17 years) Not on file Food Insecurity Answer Date Recorded Do you need food for this week? No 10/25/2023 Are you able to get enough f ood for your family? (Household - for ages 0-17 years) Not on file 10/25/2023 Does your family need food t his week? (Household - for ages 0-17 years) Not on file 10/25/2023 Do you always have enough fo od for your family? (Household - for ages 0-17 years) Not on file 10/25/2023 Estimated Date of Delivery Comme nts Yes 05/20/2024 Based on last me nstrual period of 08/14/2023 (Exact Date) Sex and Gender Information Value Date Recorded Sex Assigned at Female 03/25/2022 11:34 AM EST Gender Identity Female 03/25/2022 11:34 AM EST Sexual Orientation Straight 03/25/2022 11 :34 AM EST Job Start Date Occupation Industry Not on file Not on file Not on file documented as of this encounter Last Filed Vital Signs Vital Sign Reading Time Taken Comments Blood Pressure 108/66 11/24/2023 2:14 PM EDT Pulse - - Temperature - - Respiratory Rate - - Oxygen Saturation - - Inhaled Oxygen Concentration - - Weight 61.7 kg (136 lb) 11/24/2023 2:14 PM EDT Height - - Body Mass Index 24.87 10/25/2023 11:34 AM EDT documented in this encounter Progress Notes * Radha Padgett CRNP - 11/24/2023 2:30 PM EDT 14w4d No concerns. Denies bleeding, n/v. Has not started baby asprin yet, but feels comfortable picking up OTC and starting. RICHARD Cheung * Zari Coronel LPN - 11/24/2023 2:14 PM EDT 14w4d Denies vaginal bleeding/rom Absent movement No new concerns documented in this encounter Plan of Treatment Health Maintenance Due Date Last Done Comments [...] hypertension documented in this encounter Care Teams Ornamental Bronze Worker Relationship Specialty Start Date End Date Dilcia Arndt MD PCP - General 04/26/08 documented as of this encounter
--- OUTSIDE RECORDS SUMMARY | 2024-05-16 05:24 | External Medical Summary ---
Author Name Unknown Address Unknown Organization K01:LAB[facility]ATORY [facility] [place] [address] [place] [address] Laboratory Report Ordering Provider Test Date Status LIBRADO HENDRICKS 11/29/2023 16:21:12 Final Observation Date Value Abnormality Reference (Units ) Status BUN 11/29/2023 16:21:12 7 6-20 (mg/dL) Final Creatinine 11/29/2023 16:21:12 0.6 0.5-1.0 (mg/dL) Final Glomerular filtration rate/1.73 sq M.predicted [Volume Rate/Area] in Serum, Plasma or Blood by Creatinine-based formula (CKD-EPI) 11/29/2023 16:21:12 >90 >=60 (mL/min) Final eGFR is calculated based on the CKD-EPI 2020 equation. Sodium 11/29/2023 16:21:12 137 135-146 (m mol/L) Final Potassium 11/29/2023 16:21:12 3.7 3.5-5.1 (m mol/L) Final Cl 11/29/2023 16:21:12 103 98-107 (mm ol/L) Final CO2 11/29/2023 16:21:12 23 22-32 (mmo l/L) Final Anion gap 11/29/2023 16:21:12 11 7-15 (mmol /L) Final Glucose 11/29/2023 16:21:12 90 70-120 (mg /dL) Final Albumin 11/29/2023 16:21:12 3.6 Below low normal 3.8 -5.0 (g/dL) Final AST (Aspartate aminotransferase) 11/29/2023 16:21:12 19 10-35 (U/L) Fin al Alk Phos 11/29/2023 16:21:12 83 35-130 (U/ L) Final Bilirubin, Total 11/29/2023 16:21:12 <0.2 <=1 .2 (mg/dL) Final Calcium 11/29/2023 16:21:12 8.8 8.4-10.2 ( mg/dL) Final Protein 11/29/2023 16:21:12 6.3 6.0-8.3 (g /dL) Final ALT (Alanine aminotransferase) 11/29/2023 16:21:12 17 10-35 (U/L) Joel jeff Performing Location [facility] [place] [address] [facility] [address]
--- OUTSIDE RECORDS SUMMARY | 2024-05-16 05:24 | External Medical Summary | Summary of Care ---
Author Name Unknown Organization [facility] Address [address] [place] [address] Phone [phone] Care Team Providers Care Paid Search Analyst Name Role Phone Dilcia Arndt MD Primary Care Provider [phone] Reason for Visit * Reason Comments Outpatient Testing Encounter Details Date Type Department Care Team ([facility] st Contact Info) Description 11/29/2023 4:20 PM EDT Laboratory Laboratory Patient Service [address] [id number] [address] [address] Elevated ALT measurement Allergies No known active allergiesdocumented as of this encounter (statuses as of 11/29/2023) Medications Medication Sig Dispensed Refills Start Date End Date Status DULoxetine HCl 20 MG Oral Capsule Delayed Release Particles Take 2 Capsules by mouth in the morning. Active 28-0.8 MG Oral Tablet Take by mouth. Active documented as of this encounter (statuses as of 11/29/2023) Active Problems Problem Noted Date Diagnosed Date History of gestational hypertension 11/24/2023 Encounter for supervision of other normal , unspecified trimester 11/24/2023 Elevated ALT measurement 11/01/2023 Iron deficiency anemia 08/25/2022 Femoral anteversion 06/14/2002 Flat foot(734) 06/14/2002 Estimated Date of Delivery Comme nts Yes 05/20/2024 Based on last me nstrual period of 08/14/2023 (Exact Date) documented as of this encounter (statuses as of 11/29/2023) Resolved Problems Problem Noted Date Diagnosed Date Resolved Date Gestational hypertension wit hout significant proteinuria 10/22/2022 12/04/2022 Antepartum anemia complicating 08/19/2022 12/04/2022 Overview: Hemoglobin 10.0 on 08/17/22; blood management referral placed High-risk 03/25/2022 12/05/19 Adjustment disorder with mix ed anxiety and depressed mood 03/25/2022 12/04/2022 Overview: Taking cymbalta at NOB, planning to continue on this documented as of this encounter (statuses as of 11/29/2023) Immunizations Name Administration Dates Next Due TDAP [...] money to get more. Never true 10/25/2023 [place] Depression Scale Answer Date Recorded [place] Depression Scale Total 5 10/29/2023 The thought [...] No 10/25/2023 Does the household have a [facility] source of income? (Household - for ages [...] Description 12/22/2023 2:15 PM EST Office Visit Gynecology/Obstetrics Jojo Allen [address] [place] [address] Radha Padgett CRNP [address] [place] [address] Pending Results Name Type Priority Associated Diagnoses Date /Time COMPREHENSIVE METABOLIC PANEL Lab Routine Elevated ALT measurement 11/29/2023 4:21 PM EDT Health Maintenance Due Date Last [...] as of this encounter Visit Diagnoses Diagnosis Elevated ALT measurement Nonspecific elevation of levels of transaminase or lactic acid dehydrogenase (LDH) documented in this encounter Care Teams Paid Search Analyst Relationship Specialty Start Date End Date Dilcia Arndt MD PCP - General 04/26/08 documented as of this encounter
--- OUTSIDE RECORDS SUMMARY | 2024-05-16 05:24 | External Medical Summary ---
Author Name Unknown Address Unknown Organization : Laboratory Report Ordering Provider Test Date Status SÁNCHEZ RODRÍGUEZ 12/22/2023 14:30:54 Final Observation Date Value Abnormality Reference (Units ) Status INTERPRETATION 12/22/2023 14:30:54 SEE BELOW Final Screen negative for open NTD . RISK FOR ONTD 12/22/2023 14:30:54 <1:5000 Final CALC'D GESTATIONAL AGE 1112/22/2023 14:30:54 18.6 Final AFP, SERUM 12/22/2023 14:30:54 55.2 (ng/mL) Final AFP MOM 12/22/2023 14:30:54 1.09 Final Reference Range:
NTD <2 .50
IDD <1.90
TWINS <4.00
TWINS IDD <3.50
TRIPLETS <4.50
The AFP test result indicates that this patient is
screen negative for open NTD. It should be noted
that normal test results can never guarantee the
of a normal baby and that 2-3% of newborns
have some type of physical or mental defect, many
of which are undetectable through any known
diagnostic technique.
This is a screening test, not a diagnostic test.
This risk assessment report is based in part on
demographic data provided by the ordering
physician. Please notify the laboratory promptly
if any data are incorrect. For assistance with
recalculations, please call your local [facility] laboratory. For assistance with
interpretation of these results, please contact
your Local [facility] genetic counselor or
call [phone] ([phone]).
Interpretive Cutoffs
Screen Positive for Open NTD:
> or = 2.50 adjusted MOM
> or = 1.90 adjusted MOM for insulin- dependent diabetics
> or = 4.00 adjusted MOM for twins
> or = 3.50 adjusted MOM for twins insulin-dependent diabetics
> or = 4.50 adjusted MOM for triplets
For additional information, please refer to
[email or web address]
(This link is being provided for
informational/educational purposes only.) DATE OF 12/22/2023 14:30:54 2000 Final COLLECTION DATE 12/22/2023 14:30:54 12/22/2023 Final MATERNAL WEIGHT 12/22/2023 14:30:54 138 (lbs ) Final EST'D DATE OF DELIVERY 12/22/2023 14:30:54 05/20/2024 Final ADE DETERMINED BY 12/22/2023 14:30:54 NOT GIVEN Final MOTHER'S ETHNIC ORIGIN 12/22/2023 14:30:54 WHITE Final NUMBER OF FETUSES 12/22/2023 14:30:54 1 Final INSULIN DEPEND DIABETIC 12/22/2023 14:30:54 NO Final REPEAT SPECIMEN 12/22/2023 14:30:54 NO Final HX OF NEURAL TUBE DEFECTS 12/22/2023 14:30:54 NO Final PREV DOWN SYND 12/22/2023 14:30:54 NO Final DONOR EGG 12/22/2023 14:30:54 NO Final DONOR AGE: EGG RETRIEVAL 12/22/2023 14:30:54 NOT GIVEN Final Test performed by [facility]
[address] [facility],
[place] [address]

Case Specialist: Jennifer Liang MD,PHD,DEANN
Test Reported by Jolynn Corcoran,
[facility],
[address] [place], [place]
Arie Aponte M.D., Ph.D., Director of Laboratories
, [facility] [id number] Performing Location
--- OUTSIDE RECORDS SUMMARY | 2024-05-16 05:24 | External Medical Summary | Summary of Care ---
Author Name Unknown Organization [facility] Address [address] [place] [address] Phone [phone] Care Team Providers Care Digital Producer Name Role Phone Dilcia Arndt MD Primary Care Provider [phone] Reason for Visit * Reason Comments Outpatient Testing Encounter Details Date Type Department Care Team (Late st Contact Info) Description 12/22/2023 2:30 PM EST Laboratory Laboratory, [facility] [address] [place] [phone] [facility] [address] [place] [address] Arrived Allergies No known active allergiesdocumented as of [...] money to get more. 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
--- OUTSIDE RECORDS SUMMARY | 2024-05-16 05:24 | External Medical Summary | Summary of Care ---
Author Name Unknown Organization [facility] Address [address] [place] [address] Phone [phone] Care Team Providers Care Chief Of Planning Name Role Phone Dilcia Arndt MD Primary Care Provider [phone] Encounter Details Date Type Department Care Team (Late st Contact Info) Description 11/30/2023 Telephone Gynecology/Obstetrics [facility] [address] [facility] [place] [address] Mary Jo Carlson PA-C [address] [facility] [place] [address] Allergies No known active allergiesdocumented as of this encounter (statuses as of 11/30/2023) Medications Medication Sig Dispensed Refills Start Date End Date Status DULoxetine HCl 20 MG Oral Capsule Delayed Release Particles Take 2 Capsules by mouth in the morning. Active 28-0.8 MG Oral Tablet Take by mouth. Active documented as of this encounter (statuses as of 11/30/2023) Active Problems Problem Noted Date Diagnosed Date History of gestational hypertension 11/24/2023 Encounter for supervision of other normal , unspecified trimester 11/24/2023 Elevated ALT measurement 11/01/2023 Iron deficiency anemia 08/25/2022 Femoral anteversion 06/14/2002 Flat foot(734) 06/14/2002 Estimated Date of Delivery Comme nts Yes 05/20/2024 Based on last me nstrual period of 08/14/2023 (Exact Date) documented as of this encounter (statuses as of 11/30/2023) Resolved Problems Problem Noted Date Diagnosed Date Resolved Date Gestational hypertension wit hout significant proteinuria 10/22/2022 12/04/2022 Antepartum anemia complicating 08/19/2022 12/04/2022 Overview: Hemoglobin 10.0 on 08/17/22; blood management referral placed High-risk 03/25/2022 12/05/19 Adjustment disorder with mix ed anxiety and depressed mood 03/25/2022 12/04/2022 Overview: Taking cymbalta at NOB, planning to continue on this documented as of this encounter (statuses as of 11/30/2023) Immunizations Name Administration Dates Next Due TDAP [...] money to get more. Never true 10/25/2023 [place] Depression Scale Answer Date Recorded [place] Depression Scale Total 5 10/29/2023 The thought [...] No 10/25/2023 Does the [facility] have a [facility]? (Household - for [...] on file documented as of this encounter Miscellaneous Notes * Telephone Encounter - Sylvie Bains LPN - 11/30/2023 1:12 PM EDT ----- Message from Mary Jo Carlson sent at 11/30/2023 1:06 PM EDT ----- Please inform patient her repeat CMP showed normal LFTs. Thanks! Mary Jo Carlson PA-C documented in this encounter Plan of Treatment Upcoming Encounters Date Type Department Care Team (Late st Contact Info) Description 12/22/2023 2:15 PM EST Office Visit Gynecology/Obstetrics [facility] Allen [address] [place] [address] Radha Padgett CRNP [address] [place] [address] Health Maintenance Due Date Last Done Comments [...] filedocumented as of this encounter Care Teams Chief Of Planning Relationship Specialty Start Date End Date Dilcia Arndt MD PCP - General 04/26/08 documented as of this encounter
--- NOTE | 2024-05-18 12:11 | Discharge Summary ---
Date of Service May 18, 2024 Admission HPI Per Admitting Provider 23 F P1011 at 38 weeks seen in L&D for gestational hypertension at 38 weeks. Denies any visual changes, headache, swelling in hands, feet or face. Discharge Data Consultations none Procedures Performed NST
== END 2024-05-15 19:30 | disposition home or self-care (01) ==
LOC: 4S1 17:27 → OPB 17:27 → 4S1 17:30

== ENCOUNTER 2024-05-19 01:54 | Inpatient (IN) ==
[2024-05-19] MEDS ORDERED: LIDOCAINE 1% LOCAL 20 ML VIAL INFIL PRN (02:16)
[2024-05-19] MEDS: LACTATED RINGER'S 1,000 ML IV PRN (02:35)
[2024-05-19] MEDS ORDERED: NALBUPHINE HCL INJ 10 MG/ML AMP IV PRN (02:41)
[2024-05-19] MEDS ORDERED: diphenhydrAMINE 50 MG/ML VIAL IV PRN (02:41)
[2024-05-19] MEDS ORDERED: ROPIVACAINE 0.5% PF 5 MG/ML 20 ML VIAL EPI PRN (02:41)
[2024-05-19] MEDS ORDERED: fentaNYL citrate PF 100 MCG/2 ML VIAL EPI PRN (02:41)
[2024-05-19] MEDS ORDERED: LIDOCAINE 2% MPF LOCAL 5 ML VIAL EPI PRN (02:41)
[2024-05-19] MEDS ORDERED: BUPIVACAINE 0.25% PF 30 ML VIAL EPI PRN (02:41)
[2024-05-19] MEDS ORDERED: SODIUM CHLORIDE 0.9% PF INJ 10 ML VIAL EPI PRN (02:41)
[2024-05-19] MEDS ORDERED: ePHEDrine sulfate 50 MG/ML AMP IV PRN (02:41)
[2024-05-19] MEDS ORDERED: NALOXONE HCL 0.4 MG/1 ML VIAL/CARP IV PRN (02:41)
[2024-05-19] MEDS ORDERED: NALOXONE HCL 1 MG in SODIUM CHLORIDE 0.9% 1,000 ML IV PRN (02:41)
--- NOTE | 2024-05-19 02:41 | Anesthesiology Consultation ---
Date of Service May 19, 2024 Assessment & Plan Chart Review Chart Review: Acceptable Risk for Labor Epidural Consults Requested none History Height/Weight Height: 5 ft 3 in Weight: 80.286 kg Allergies Allergy/AdvReac Type Severity Reaction Status Date / Time No Known Drug Allergies Allergy Unknown Verified 10/23/22 08:23 Medications Home Medications Medication Instructions Recorded Confirmed Last Taken duloxetine 40 mg capsule,delayed 40 mg PO HS 05/15/24 05/19/24 05/18/24 release ferrous sulfate 325 mg (65 mg 325 mg PO DAILY 05/15/24 05/19/24 05/18/24 iron) tablet vits no.124-ferrous fum 1 tab PO DAILY 05/19/24 05/19/24 05/18/24 27 mg iron-folic acid 800 mcg tablet ( Vitamin) Active Medications Generic Name Dose Route Start Last Admin Trade Name Freq PRN Reason Stop Dose Admin Lactated Ringer's 1,000 mls @ 125 mls/hr 05/19/24 02:16 05/19/24 02:35 Lr IV 05/20/24 02:15 999 mls/hr .Q8H PRN Administration L&D Protocol Protocol Past Medical History Medical History Normal course Gestational [-induced] hypertension without significant proteinuria, complicating childbirth Past Surgical History Surgical History No history of previous surgery Social History Smoking Status: Never smoker Hx Alcohol Use: No Hx Substance Use: No substance use type: does not use Physical Exam Vital Signs Last Vital Signs Temp 36.6 C 05/19/24 02:26 Pulse 139 H 05/19/24 02:09 Resp 18 05/19/24 02:26 BP 133/81 05/19/24 02:09
[2024-05-19 02:52] LABS: Hematocrit (blood only) 33.6 % (37.0-47.0); Hemoglobin 10.8 g/dl (12.0-16.0); Mean Corpuscular Hemoglobin 26.5 pg (25.0-34.0); Mean Corpuscular Hgb Conc 32.1 g/dL (32.0-36.0); Mean Corpuscular Volume 82.4 fL (80.0-100.0); Mean Platelet Volume 9.8 fL (9.4-12.4); Platelet Count 235 K/uL (130-400); RDW Coefficient of Variation 14.8 % (11.5-14.5); RDW Standard Deviation 43.5 fL (36.4-46.3); Red Blood Count 4.08 M/uL (4.20-5.40); White Blood Count 9.19 K/ul (4.8-10.8)
--- NOTE | 2024-05-19 03:06 | History & Physical Report ---
Date of Service May 19, 2024 Assessment & Plan Admission and Anticipated Discharge Date Admission Date: May 19, 2024 History of Present Illness Chief Complaint: onset of labor Primary Care Provider: Dilcia Arndt MD 23 F P1011 at 39.6 admitted in active labor. GBS is negative. Gestational hypertension with nt on any meds. Allergies Allergy/AdvReac Type Severity Reaction Status Date / Time No Known Drug Allergies Allergy Unknown Verified 10/23/22 08:23 Home Medications Medication Instructions Recorded Confirmed Type duloxetine 40 mg capsule,delayed 40 mg PO HS 05/15/24 05/19/24 History release ferrous sulfate 325 mg (65 mg 325 mg PO DAILY 05/15/24 05/19/24 History iron) tablet vits no.124-ferrous fum 1 tab PO DAILY 05/19/24 05/19/24 History 27 mg iron-folic acid 800 mcg tablet ( Vitamin) Patient History Medical History Normal course Gestational [-induced] hypertension without significant proteinuria, complicating childbirth Surgical History No history of previous surgery Social History Smoking Status: Never smoker Hx Alcohol Use: No Hx Substance Use: No Preferred Language: Greek Communication Ability: Effective Database Marketing Manager Required: No Beliefs That Will Affect Care: None marital status: Current Living Situation: Spouse and Family Current Living Situation Comment: , 1 kid, 2 dogs Other Information That Helps Us Care for You: No Feels Safe at Home: Yes Safety Concerns: Feels Safe At This Time Assistive Devices: None OB History x1 Gestational hypertension AVIATION SUPPORT EQUIPMENT REPAIRER History neg Review of Systems All systems reviewed & are unremarkable except as noted in HPI & below Physical Exam Constitutional: WD/WN, vitals as above Eyes: PERRL, conjunctivae normal, anicteric sclerae Respiratory: normal respiratory effort, lungs clear to auscultation Cardiovascular: Rate/Rhythm: regular rate and regular rhythm Gastrointestinal (Abdomen): Inspection/Auscultation: abdomen normal to inspection Musculoskeletal: Extremities: extremities normal to inspection (no edema) Neurologic: patellar DTR's 2+ bilat, sensation intact Psychiatric: A+Ox3, euthymic affect Genitourinary: OB Exam Abdomen: + fundal height and + vertex Manual OB Exam: + cervical dilation 5 cm, + cervical effacement 100% and + station -1 OB Exam Monitor Tracing: + external FHT monitor used, + external uterine monitor used, + category I and + normal FHT variability Results & Data Vital Signs (Past 12 Hours) Vital Signs Temp Pulse Resp BP Pulse Ox 05/19/24 03:01 137 H 98 05/19/24 02:56 114 H 99 05/19/24 02:51 122 H 100 05/19/24 02:46 123 H 99 05/19/24 02:26 36.6 C 18 05/19/24 02:09 139 H 133/81 Laboratory Results Laboratory Results - last 72 hr 05/19/24 02:22 WBC 9.19 RBC 4.08 L Hgb 10.8 L Hct 33.6 L MCV 82.4 MCH 26.5 MCHC 32.1 RDW Std Deviation 43.5 RDW Coeff of Randall 14.8 H Plt Count 235 MPV 9.8 Monitoring External Monitor Cat 1
[2024-05-19] MEDS: BUPIVACAINE 0.25% PF 30 ML VIAL EPI STA (03:18)
[2024-05-19] MEDS: LIDOCAINE 2%/EPINEPHRINE 1:200,000 20 ML PF EPI STA (03:21)
[2024-05-19] MEDS: fentANYL 2 MCG/ML BUPIVacaine 0.125%-NSS 100ML BAG EPI PRN (03:22)
--- OUTSIDE RECORDS SUMMARY | 2024-05-19 04:20 | External Medical Summary | Summary of Care ---
Author Name Unknown Organization [facility] Address [address] [place] [address] Phone [phone] Care Team Providers Care Automotive Generator Repairer Name Role Phone Dilcia Arndt MD Primary Care Provider [phone] Encounter Details Date Type Department Care Team (Late st Contact Info) Description 05/17/2024 Telephone Gynecology/Obstetrics [facility] [address] [place] [address] Verónica Rowland MD [address] [place] [address] Allergies No known active allergiesdocumented as of this encounter (statuses as of 05/17/2024) Medications DULoxetine HCl 20 MG Oral Capsule Delayed Release Particles Take 2 Capsules by mouth in the morning. Active 28-0.8 MG Oral Tablet Take by mouth. Active documented as of this encounter (statuses as of 05/17/2024) Active Problems Problem Noted Date Diagnosed Date [...] as of this encounter (statuses as of 05/17/2024) Resolved Problems Problem Noted Date Diagnosed Date [...] as of this encounter (statuses as of 05/17/2024) Immunizations Name Administration Dates Next Due TDAP [...] money to get more. 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 Marshall, would like her to just head up to L and D now. Called patient and made aware, she is already at hospital, walking up to L and D now. L and D nurses aware. * Telephone Encounter - Maricruz Christie RN - 05/17/2024 9:52 AM EDT Patient calling from parking lot [facility] at L and D, advised by nursing there to call us. Patient is currently 39w4d calling with possible labor. Patient has been joy every 10 minutes for >24 hours. Are you experiencing any increase in pelvic pressure? yes Patient denies any vaginal bleeding , reports + clear fluid leaking since last evening and is having positive movement. ob history: OB History 3 Para 1 Term 1 AB 1 Living 1 SAB 1 IAB Ectopic Multiple Live Births 1 Maricruz Christie RN documented in this encounter Plan of Treatment Upcoming Encounters Date Type Department Care Team (Late st Contact Info) Description 05/17/2024 3:15 PM EDT Nurse Only Gynecology/Obstetics [facility] [address] [place], Nurse Crusher Screen Repairer [address] [address] 05/17/2024 4:00 PM EDT Office Visit Gynecology/Obstetics [facility] [address] [place] [phone] Shannan Strong PA-C [address] [place] [address] Health Maintenance Due Date Last Done Comments [...] filedocumented as of this encounter Care Teams Automotive Generator Repairer Relationship Specialty Start Date End Date Dilcia Arndt MD PCP - General 04/26/08 documented as of this encounter
--- OUTSIDE RECORDS SUMMARY | 2024-05-19 04:20 | External Medical Summary | Summary of Care ---
Author Name Unknown Organization [facility] Address [address] [facility] [place] [address] Phone [phone] Care Team Providers Care Twill Cutter Name Role Phone Dilcia Arndt MD Primary Care Provider [phone] Reason for Visit * Reason Onset Date Comments Scheduling 05/17/2024 Encounter Details Date Type Department Care Team (Late st Contact Info) Description 05/17/2024 Telephone Gynecology/Obstetrics [facility] [address] [place] [address] Verónica Rowland MD [address] [place] [address] Scheduling Allergies No known active allergiesdocumented as of this encounter (statuses as of 05/18/2024) Medications DULoxetine HCl 20 MG Oral Capsule Delayed Release Particles Take 2 Capsules by mouth in the morning. Active 28-0.8 MG Oral Tablet Take by mouth. Active documented as of this encounter (statuses as of 05/18/2024) Active Problems Problem Noted Date Diagnosed Date [...] as of this encounter (statuses as of 05/18/2024) Resolved Problems Problem Noted Date Diagnosed Date [...] as of this encounter (statuses as of 05/18/2024) Immunizations Name Administration Dates Next Due TDAP [...] money to get more. 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
--- OUTSIDE RECORDS SUMMARY | 2024-05-19 04:20 | External Medical Summary | Summary of Care ---
Author Name Unknown Organization [facility] Address [address] [facility] [place] [address] Phone [phone] Care Team Providers Care Senior Peoplesoft Developer Name Role Phone Dilcia Arndt MD Primary Care Provider Reason for Visit * Reason Onset Date Comments Scheduling 05/17/2024 Encounter Details Date Type Department Care Team (Late st Contact Info) Description 05/17/2024 Telephone Gynecology/Obstetrics [facility] [address] [place] [address] Verónica Rowland MD [address] [place] [address] Scheduling Allergies No known active allergiesdocumented as [...] money to get more. 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
[2024-05-19] MEDS: ePHEDrine sulfate 50 MG/ML AMP ONE (05:37)
[2024-05-19] MEDS: LIDOCAINE 2%/EPINEPHRINE 1:200,000 20 ML PF ONE (05:38)
[2024-05-19] MEDS: fentaNYL citrate PF 100 MCG/2 ML VIAL EPI STA (05:38)
[2024-05-19] MEDS: SODIUM CHLORIDE 0.9% PF INJ 10 ML VIAL ONE (05:38)
[2024-05-19] MEDS: fentANYL 2 MCG/ML BUPIVacaine 0.125%-NSS 100ML BAG ONE (05:38)
[2024-05-19] MEDS: fentaNYL citrate PF 100 MCG/2 ML VIAL ONE (05:38)
[2024-05-19] MEDS: BUPIVACAINE 0.25% PF 30 ML VIAL ONE (05:38)
[2024-05-19] MEDS: SODIUM CHLORIDE 0.9% PF INJ 10 ML VIAL EPI STA (05:39)
[2024-05-19] MEDS: OXYTOCIN 30 UNITS/NSS 30 UNITS/500 ML BAG IV PRN (06:25)
[2024-05-19] MEDS ORDERED: bisacodyL 10 MG SUPP PR PRN (06:45)
[2024-05-19] MEDS ORDERED: HYDROCORTISONE ACETATE 25 MG SUPP PR PRN (06:45)
[2024-05-19] MEDS ORDERED: DIPHTHER/TETAN/PERTUS Vaccine (Tdap, Adol/Adult) 0.5mL IM ONE (06:45)
[2024-05-19] MEDS ORDERED: OXYTOCIN 30 UNITS/NSS 30 UNITS/500 ML BAG IV PRN (06:45)
--- NOTE | 2024-05-19 06:47 | Delivery Summary ---
Vaginal Delivery Summary Date of Service May 19, 2024 Vaginal Delivery Summary live female JEANMARIE over intact perineum with delayed cord clamping. Apgars 8/8 weight pending. Cord blood obtained followed by spontaneous delivery of intact placenta. First degree tear repaired with 3/0 Vicryl suture. QBL 350 ml. Final sponge, needle and instrument counts are correct. Mom and baby stable.
--- NOTE | 2024-05-19 07:40 | Anesthesia Procedure Note ---
Date of Service May 19, 2024 Anesthesia Post Epidural Note Vital Signs Vital Signs: Temp Pulse Resp BP Pulse Ox 36.7 C 110 H 18 138/93 99 05/19/24 05:24 05/19/24 07:33 05/19/24 06:48 05/19/24 07:33 05/19/24 06:31 Pain Intensity Abdomen: Pain Intensity: 0 Notes Mental Status: alert / awake / arousable and participated in evaluation Nausea / Vomiting: adequately controlled Pain: adequately controlled Airway Patency, RR, SpO2: stable & adequate BP & HR: stable & adequate Hydration State: stable & adequate Neuraxial Anesthesia: was administered and sensory block is resolving Anesthetic Complications: no major complications apparent Epidural: Removed without complications and With tip intact
[2024-05-19] MEDS ORDERED: PRENATAL VITAMIN 1 TAB PO SCH (09:00)
[2024-05-19] MEDS ORDERED: NON-FORMULARY MEDICATION (Ferrous Sulfate 325 mg (65 mg iron) Tablet) PO SCH (09:00)
[2024-05-19] MEDS: BENZOCAINE 20% SPRY 85 APPLN/85 GM CAN EXT PRN (09:03)
[2024-05-19] MEDS: IBUPROFEN 600 MG TAB PO PRN (09:04)
[2024-05-19] MEDS: PRENATAL VITAMIN 1 TAB PO SCH (12:37)
[2024-05-19] MEDS: FERROUS SULFATE 325 MG TAB PO SCH (12:37)
[2024-05-19] MEDS: DOCUSATE SODIUM 100 MG CAP PO SCH (12:37)
[2024-05-19] MEDS: DULoxetine HCL 20 MG CAP PO SCH (20:03)
[2024-05-19] MEDS: ACETAMINOPHEN 325 MG TAB PO PRN (20:03)
[2024-05-20 04:12] VITALS: RESP 18; TEMP 97.7
[2024-05-20 07:00] LABS: Hematocrit (blood only) 29.8 % (37.0-47.0); Hemoglobin 9.3 g/dl (12.0-16.0); Mean Corpuscular Hemoglobin 25.9 pg (25.0-34.0); Mean Corpuscular Hgb Conc 31.2 g/dL (32.0-36.0); Mean Platelet Volume 10.1 fL (9.4-12.4); Platelet Count 212 K/uL (130-400); RDW Coefficient of Variation 14.9 % (11.5-14.5); RDW Standard Deviation 44.4 fL (36.4-46.3); Red Blood Count 3.59 M/uL (4.20-5.40); White Blood Count 8.49 K/ul (4.8-10.8)
[2024-05-20 08:12] VITALS: O2SAT 99
--- NOTE | 2024-05-20 10:22 | Obstetrical Progress Note ---
Date of Service May 20, 2024 Assessment & Plan (1) Gestational hypertension affecting second : Plan PPD #1 pt doing well no complaints wishes to be discharge home this evening Results & Data Vital Signs (Past 12 Hours) Vital Signs Temp Pulse Resp BP Pulse Ox O2 Del Method 05/20/24 07:40 36.5 C 99 H 18 124/84 99 Room Air 05/20/24 03:15 36.5 C 90 18 129/81 98 Room Air 05/19/24 23:05 36.9 C 86 16 131/83 97 Room Air
[2024-05-20 10:34] VITALS: BP 128/91; PULSE 90
[2024-05-20] MEDS ORDERED: bisacodyL 5 MG TABEC PO SCH (20:00)
== END 2024-05-20 11:20 | disposition home or self-care (01) | DRG 807 ==
LOC: 4S1 01:54 → 4E1 09:32